=== PATIENT | male | born 1985 | race Caucasian/White ===

== ENCOUNTER 2021-06-29 08:30 | Emergency (ER) | payer OTHER, SELFPAY ==
[2021-06-29 08:32] VITALS: BP 119/97; PULSE 103; RESP 17; TEMP 36.1; O2SAT 100; BMI 27.0
[2021-06-29] MEDS: fentaNYL 100 MCG/2 ML Ampul IV ×2 (08:37→09:18)
--- NOTE | 2021-06-29 08:38 | ED.RN ---
PHYSICIAN AT BEDSIDE DOING A FAST EXAM OF ABD. PT MEDICATED FOR PAIN
--- NOTE | 2021-06-29 08:41 | RAD_ITS ---
STUDY: X-RAY - RIGHT TIBIA AND FIBULA REASON FOR EXAM: Male, 35 years old. TRAUMA TECHNIQUE: 1 view(s) of the tibia and fibula were obtained. COMPARISON: None. FINDINGS: Comminuted fracture through the midshaft of the tibia with extension to the distal tibia and the articular surface. Comminuted fracture through the distal shaft of the fibula. Soft tissue swelling. RAD/Tibia & Fibula 2 Views IMPRESSION: Comment a fracture through the midshaft of the tibia with extension of the distal tibia and the articular surface. Comminuted fracture through the distal shaft of the fibula. Electronically Signed: Sam Feldman MD at 9:28 EDT ,
--- NOTE | 2021-06-29 08:46 | ED.RN ---
WITH PT PERMISSION, THIS NURSE CONTACTED PT FATHER JUAN UPDATED ON STATUS AND CONDITION
--- NOTE | 2021-06-29 08:47 | RAD_ITS ---
STUDY: X-RAY CHEST REASON FOR EXAM: Male, 35 years old. Trauma TECHNIQUE: Single AP portable view of the chest. COMPARISON: None. FINDINGS: EKG electrodes are seen. Minimal linear atelectasis in the right upper lobe. There is no demonstrated pleural abnormality. Normal size heart. Normal mediastinum and tayla. Normal visualized pulmonary arteries. Normal visualized aortic arch and descending thoracic aorta. Normal visualized thoracic spine. Normal visualized ribs, clavicles, and shoulders. There is no demonstrated abnormality of the visualized soft tissue structures of the upper abdomen. RAD/Chest 1 View (Portable) IMPRESSION: Minimal linear atelectasis in the right upper lobe. Electronically Signed: Sam Feldman MD at 9:30 EDT ,
--- NOTE | 2021-06-29 08:47 | RAD_ITS ---
STUDY: X-RAY - PELVIS REASON FOR EXAM: Male, 35 years old. Trauma TECHNIQUE: One view of the pelvis was obtained. COMPARISON: None. FINDINGS: There is a non-specific bowel gas pattern. Normal visualized soft tissue structures. Normal bilateral iliac wings, sacroiliac joints and visualized sacrum. Normal visualized bilateral superior and inferior pubic rami. Normal pubic symphysis. Normal ischial tuberosities. Normal visualized right femoral head. Normal right acetabulum. Normal right hip joint. Normal visualized left femoral head. Normal left acetabulum. Normal left hip joint. RAD/Pelvis 1 or 2 Views IMPRESSION: Normal x-ray examination of the pelvis. Electronically Signed: Sam Feldman MD at 9:29 EDT ,
[2021-06-29] MEDS: 0.9% Normal Saline 1,000 ML 999 ML IV (08:48)
[2021-06-29] MEDS: Ondansetron 4 MG/2 ML Vial IV (08:49)
--- NOTE | 2021-06-29 08:49 | NURSING ---
[facility] NOT FLYING CALLED [facility], ETA IS 30 MIN WITH LIGHTS AND SIRENS
[2021-06-29] MEDS: Etomidate 20 MG/10 ML Vial 10 MG IV (08:50)
[2021-06-29 09:00] LABS: Absolute Lymphocyte Count 2.95 X10^3/uL (0.83-4.51); Absolute Neutrophil Count 13.5 X10^3/uL (2.0-7.7); Basophil# 0.09 X10^3/uL; Basophil% 0.5 % (0-1); Eosinophil# 0.26 X10^3/uL; Eosinophils% 1.4 % (0-5); Hematocrit 46.4 % (40-54); Hemoglobin 15.9 g/dL (13.0-16.5); Lymphocyte # 2.95 X10^3/ul (0.83-4.51); Lymphocyte % 16.2 % (19-41); Mean Corp Hgb Conc 34.3 g/dL (32-36); Mean Corpuscular Hgb 29.9 pg (27.0-32.0); Mean Corpuscular Volume 87.2 fL (80-94); Mean Platelet Vol. 10.2 fl (6.2-12.0); Monocyte# 1.38 X10^3/uL; Monocyte% 7.6 % (0-10); NRBC Flagged by Analyzer 0 % (0-5); Neutrophil # 13.47 X10^3/uL (2.7-7.7); Neutrophil % 73.9 % (47-70); Platelet Count 331 K/mm3 (150-450); RBC Distribution Width CV 14.1 % (11.6-14.6); RBC Distribution Width SD 44.9 fl (35.1-43.9); Red Blood Count 5.32 M/mm3 (4.6-6.2); White Blood Count 18.2 K/mm3 (4.4-11.0)
--- NOTE | 2021-06-29 09:02 | EDS_ITS ---
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 He sustained injury to both lower legs and his left flank. EMS splinted his right leg and gave him 100 mcg of fentanyl prior to arrival. Tetanus Immunization: Unknown PFS PFS Medical History no medical history no medical history Home Medications NK 06/29/21 [History Last Taken Unknown] Allergy/AdvReac Type Severity Reaction Status Date / Time amoxicillin [From Augmentin] Allergy PT UNSURE Verified 06/29/21 08:31 OF REACTION clavulanic acid Allergy PT UNSURE Verified 06/29/21 08:31 [From Augmentin] OF REACTION Social History (Updated 06/29/21 @ 09:[address] Kameron Holloway MD) Smoking Status: Current every day smoker ROS ROS ED Constitutional Constitutional ED: Denies chills or fever(s) Eyes Eyes: Denies change in vision or diplopia ENT ENT ED: Denies ear pain, epistaxis, facial pain or rhinorrhea Cardiovascular Cardiovascular: Denies chest pain or palpitations Respiratory/Chest Respiratory/Chest: Denies cough or dyspnea Gastrointestinal Gastrointestinal: Denies abdominal pain, diarrhea, melena, nausea or vomiting Genitourinary Genitourinary ED: Reports flank pain; Denies dysuria or hematuria Musculoskeletal Musculoskeletal: Reports extremity pain; Denies back pain or neck pain Integumentary Reports laceration; Denies abscess, Abrasions or rash Neurologic Neurologic: Denies confusion, headache(s), paresthesias or weakness EXAM Physical Exam Const Vital Signs: 06/29/21 08:32 06/29/21 08:43 Temperature 96.9 F L Temperature Source Temporal Pulse Rate 103 H Respiratory Rate 17 Respiratory Effort Normal Non-Labored Respiratory Depth Normal Respiratory Pattern Normal Blood Pressure 119/97 H Blood Pressure Mean 104 Pulse Ox 100 Oxygen Delivery Method Room Air Positive well nourished and well developed Constitutional Narrative: Acute painful distress General Appearance ED: well developed HEENT Reports TM's clear and nasal mucous membranes and turbinates normal atraumatic Face and Sinus: Negative for facial tenderness Tympanic Membrane ED: Yes TM's clear Eyes PERRL and EOMs intact bilaterally Visual Acuity: other Other Details: no entrapment or pain with extraocular movements Neck full ROM and supple General: Negative for tenderness Chest Wall inspection of chest normal and palpation of chest normal Chest: symmetrical chest wall rise; Negative for crepitus or tenderness Resp normal respiratory effort and clear to auscultation bilaterally Percussion: other equal BS bilat Cardio no murmurs Rate: regular rate Rhythm: regular rhythm GI normal to inspection, nondistended, normoactive bowel sounds, soft to palpation and non-tender Back/Spine Back/Spine Narrative: limited ROM due to RLE pain Cervical Spine: Negative for cervical spine tenderness Thoracic Spine / Upper Back: Negative for thoracic spinal tenderness Lumbar Spine / Lower Back: Negative for lumbar spinal tenderness Extremity Extremity Narrative: Open deformity right distal lower leg, about 6 cm above the ankle. Atraumatic above both knees with stable pelvis, with regards to the extremities. Upper extremities atraumatic. Difficult to palpate any of his pulses, he has brisk cap refill distally in all 4 extremities including the right foot. Full range of motion throughout the left lower extremity and both upper extremities. General Extremety ED: Yes tenderness Neuro oriented x3, CN's II-XII intact bilaterally, moves all extremities, no focal motor deficits and no sensory deficits noted Iesha Coma Scale: document GCS findings Spontaneous Obeys Commands Oriented 15 Sensorium / Orientation: awake and alert Psych mental status grossly normal and thought process normal Skin Skin Narrative: 6 cm full-thickness linear laceration into subcutaneous fat lateral left lower leg, bleeding controlled no bones or tendons visible. Abrasion/contusion left lateral flank. Lesions: no lesions Rashes: no rashes PROC Procedures Lower Extremity Splints Lower Extremity Splint: Orthoglass Splint Fabrication: Fabricated (Long leg posterior and sugar tong splint. Neurovascularly intact distally after placement which was done under procedural sedation. Tolerated well without complications. Pack of 4 x 4's placed on the open wound over the fracture distal right lower leg anteriorly.) Location: Right Other Procedures Procedure(s): Procedural sedation: Discussed risks and benefits since patient had a sandwich 2 or 3 hours ago, and patient is in agreement that the benefits of sedation for splinting his right lower extremity outweigh the risks. He was on the monitor, oxygen by facemask, IV fluids going, and 10 mg of etomidate was given after analgesia with fentanyl and Zofran 4 mg for prophylaxis. Time of p rocedural sedation was 11 minutes, there were no complications and he tolerated it well. MDM MDM MDM Narrative Medical decision making narrative: Patient was given IV fluid bolus. He was given Invanz 1 g for infection prophylaxis due to his obvious right open tib- fib. We held off on tetanus. He has an allergic reaction to penicillins, he has an anaphylactoid or anaphylactic reaction. He did fine with the Invanz. He was given multiple doses of fentanyl for pain control, his blood pressure remained stable. Labs were sent including CPK. Soon as I had x-rays of his right tib-fib, we sedated him with etomidate, see the procedure note, in order to splint him and remove his pants and shoes. I performed a FAST exam which was negative. He is hemodynamically and clinically stable, his extremities are neurovascularly intact. This patient needs to be sent to a trauma center for further evaluation and treatment. He prefers [facility]. I discussed with Dr. Kothari with trauma at [facility] who accepted the patient, also discussed with the ED attending where he will be a surgical team. I personally reviewed x-rays as follows: 1 view pelvis negative, 1 view chest negative, 1 view right tib-fib commune needed distal third tibia and fibula fractures. Lab Data Labs: Laboratory Results - last 24 hr 06/29/21 08:40 WBC 18.2 H RBC 5.32 Hgb 15.9 Hct 46.4 MCV 87.2 MCH 29.9 MCHC 34.3 RDW Std Deviation 44.9 H RDW Coeff of Magalie 14.1 Plt Count 331 MPV 10.2 Immature Gran % (Auto) 0.400 Neut % (Auto) 73.9 H Lymph % (Auto) 16.2 L Crosby % (Auto) 7.6 Eos % (Auto) 1.4 Baso % (Auto) 0.5 Absolute Neuts (auto) 13.5 H Absolute Lymphs (auto) 2.95 Nucleated RBC % 0 Critical Care Time Critical Care Time: Yes Critical care time (excluding procedures): 30-74 minutes (50 min), Including time spent:, Discussing w/Patient &/or Family/Wrapper Cashier, Discussing w/Consultants, Arranging Admission or Transfer and Performing Direct Patient Care at Bedside Discharge Plan Triage Chief Complaint: Trauma Other Complaint: Lower Extremity Injury ED Provider: Jewel,Kameron Dx/Rx/DC Orders Clinical Impression: Open fracture of right tibia and fibula, Laceration of left leg, Blunt abdominal trauma, Crush injury Prescriptions: No Action NK RF: 0 Primary Care Provider: Care Physician,No Primary Referrals: Care Physician,No Primary [Primary Care Provider] - Disposition Disposition: Acute Care Hospital Discharge Location: [facility]
--- NOTE | 2021-06-29 09:10 | NURSING ---
STELLA, SERA, COAGS AND CHEMISTRIES HEMOLIZED
--- NOTE | 2021-06-29 09:13 | ED.RN ---
PT JEANS AND SHIRT THROWN OUT PER PT REQUEST DUE TO CLOTHES BEING CUT OFF. PAIR OF BROWN WORK BOOTS, BLACK WALLET AND CELL PHONE PLACED IN BELONGINGS BAG
[2021-06-29 09:14] VITALS: BP 139/75; PULSE 87; RESP 26; O2SAT 100
[2021-06-29 09:21] VITALS: BP 128/92; PULSE 75; RESP 16; O2SAT 100
[2021-06-29 09:36] VITALS: PULSE 81; RESP 16; O2SAT 100
[2021-06-29 09:36] LABS: Partial Thromboplast Time 22.9 Seconds (24.1-36.2); Prothrombin Time (Protime)PT. 12.3 SECONDS (11.7-14.9)
[2021-06-29 09:47] LABS: ALB/GLOB Ratio 1.1 RATIO (0.9-2.4); AST(SGOT) 13 U/L (15-37); Alanine Aminotransfer ALT/SGPT 30 U/L (16-61); Albumin, Serum 3.5 g/dL (3.2-5.0); Alkaline Phosphatase 69 U/L (45-117); Anion Gap 6 (5-15); BUN 18 mg/dL (7-18); BUN/Creat Ratio 16.4 RATIO (10-20); CPK Total, Creatine Kinase 171 U/L (39-308); Calcium,Total 8.9 mg/dL (8.5-10.1); Chloride 111 mmol/L (98-107); EST Glomerular Filtration Rate 80 mL/min (>60); Est Glom Filt Rate - Afr Amer 97 mL/min (>60); Estimated Creatinine Clearance 103.91 ml/min; Globulin 3.2 g/dL (2.2-4.2); Glucose 93 mg/dL (74-106); Potassium 3.5 mmol/L (3.5-5.1); Protein, Total 6.7 g/dL (6.4-8.2); Sodium Level 141 mmol/L (136-145)
--- NOTE | 2021-06-30 01:31 | ED.RN ---
GOT INTO PATIENTS CHART TO LOOK AT THE FRO[facility] FOR WORKERS COMP
== END 2021-06-29 09:42 | disposition short-term general hospital (02) ==
PROVIDERS: Emergency Provider Emergency Medicine; Visit Provider Emergency Medicine
DX: S82.201B Unspecified fracture of shaft of right tibia, initial encounter for open fracture type I or II (principal); S87.81XA Crushing injury of right lower leg, initial encounter; S39.81XA Other specified injuries of abdomen, initial encounter; W31.89XA Contact with other specified machinery, initial encounter; Y93.9 Activity, unspecified; Y92.9 Unspecified place or not applicable; F17.200 Nicotine dependence, unspecified, uncomplicated
CPT/HCPCS: 29505; 71045; 72170; 73590; 80053; 82550; 85025; 85610; 85730; 96365; 96375; 96376; 99285; J7030; A4216; J2405

== ENCOUNTER 2021-07-06 16:55 | Inpatient (IN) | payer OTHER, SELFPAY ==
[2021-07-06 17:08] VITALS: BP 128/81; PULSE 82; RESP 16; TEMP 36.7; O2SAT 95
[2021-07-06 17:47] VITALS: BMI 26.4
[2021-07-06] MEDS: oxyCODONE 5 MG Tablet PO (18:38)
[2021-07-06 20:46] VITALS: BP 114/82; PULSE 95; RESP 18; TEMP 36.7; O2SAT 95
[2021-07-06] MEDS: Acetaminophen 500 MG Tablet 1000 MG PO (20:47)
[2021-07-06] MEDS: Docusate Sodium 100 MG Capsule PO (21:26)
[2021-07-06] MEDS: Polyethylene Glycol 3350 17 GM PACKET PO (21:26)
[2021-07-06] MEDS: Gabapentin 300 MG Capsule PO (21:27)
[2021-07-06] MEDS: Methocarbamol 500 MG Tablet 1000 MG PO (21:27)
[2021-07-06] MEDS: APIXABAN 2.5 MG TABLET PO (21:27)
[2021-07-06] MEDS: Bacitracin 500 UNITS/GM PACKET TOPICAL (21:43)
[2021-07-07] MEDS: oxyCODONE 5 MG Tablet PO ×2 (02:23→08:23)
[2021-07-07 05:40] VITALS: O2SAT 98
[2021-07-07] MEDS: Methocarbamol 500 MG Tablet 1000 MG PO ×3 (05:53→21:26)
[2021-07-07] MEDS: Gabapentin 300 MG Capsule PO ×3 (05:53→21:26)
[2021-07-07 07:47] VITALS: BP 107/71; PULSE 83; RESP 16; TEMP 36.6; O2SAT 96
[2021-07-07] MEDS: Acetaminophen 500 MG Tablet 1000 MG PO ×3 (08:00→19:25)
[2021-07-07] MEDS: Docusate Sodium 100 MG Capsule PO (08:01)
[2021-07-07] MEDS: Polyethylene Glycol 3350 17 GM PACKET PO (08:01)
[2021-07-07] MEDS: APIXABAN 2.5 MG TABLET PO ×2 (08:02→21:26)
[2021-07-07] MEDS: Senna Tablet 2 TABLET PO (08:02)
--- NOTE | 2021-07-07 10:53 | HP.PCM_ITS ---
HPI - General General Date of Admission: 07/06/21 HPI Narrative JUAN MENA, is a 35 YO M with a PMH of tobacco dependence, who presented to the ED at [facility] on 06/29/[address] of work. A 1,000 lb piece of machinery fell of and elevated surface on the patient's legs. Coworkers were able to release him in less than 5 minutes and he was brought to the ED. He had injuries to both legs and the left flank. EMS had splinted his right leg and he had been given fentanyl for pain control. On physical examination there was an open deformity of the right distal lower leg. There was a 6 cm full-thickness linear laceration into the subcutaneous fat of the lateral left lower leg and abrasion/contusion to the left lateral flank. He had a fracture of the R tib/fib. He was transferred to the trauma service at [facility] where he had an I&D of the open wound and IM tomasz fixation of the mid-distal tibial fracture. Post operatively he was seen by PT and acute inpt rehab was recommended. He was transferred to the acute inpt rehab unit at [facility] on 07/06/21 for 3 hours of therapy daily to restore function/independence at or near his level prior to the accident. He had some mildly elevated BS's while at [facility]. The sutures are to be removed on 07/12/21 from the Left leg. He will follow up with the surgeon, Dr. Esposito, post discharge from rehab. He is [facility] on the [facility] Medical History (Updated 07/07/21 @ 14:[address] Bronwyn Chakraborty, ) Tobacco dependence Medical History no medical history Home Medications acetaminophen 1,000 mg PO Q8H PRN 07/06/21 [History Last Taken Unknown] apixaban [Eliquis] 2.5 mg PO BID 07/06/21 [History Last Taken Unknown] bacitracin 1 applic TOPICAL BID 07/06/21 [History Last Taken Unknown] docusate sodium 100 mg PO BID 07/06/21 [History Last Taken Unknown] gabapentin 300 mg PO TID 07/06/21 [History Last Taken Unknown] methocarbamol 1,000 mg PO TID 07/06/21 [History Last Taken Unknown] nicotine 1 patch TRANSDERMAL Q24H 07/06/21 [History Last Taken Unknown] ondansetron HCl [Zofran] 4 mg PO Q8H PRN 07/06/21 [History Last Taken Unknown] oxycodone 5 - 10 mg PO Q6H PRN 07/06/21 [History Last Taken Unknown] polyethylene glycol 3350 [Miralax] 17 g PO BID 07/06/21 [History Last Taken Unknown] sennosides [senna] 2 mg PO BID 07/06/21 [History Last Taken Unknown] Allergy/AdvReac Type Severity Reaction Status Date / Time amoxicillin [From Augmentin] Allergy PT UNSURE Verified 06/29/21 08:31 OF REACTION clavulanic acid Allergy PT UNSURE Verified 06/29/21 08:31 [From Augmentin] OF REACTION Family History (Updated 07/07/21 @ 14:[address] Bronwyn Chakraborty DO) Aunt Breast cancer Grandfather CAD (coronary artery disease) CVA (cerebral vascular accident) Mother , at 52 YOA - vaginal CA per [facility] Other Diabetes Family History no significant family his Surgical History (Updated 07/07/21 @ 14:[address] Bronwyn Chakraborty DO) S/P ORIF (open reduction internal fixation) fracture Social History (Updated 07/07/21 @ 14:[address] Bronwyn Chakraborty DO) adopted: No household members: none housing: house current occupational status: employed current occupation: employed at [employer] Smoking Status: Current every day smoker tobacco type: cigarettes quit status: considering quitting counseling given: counseling >3 minutes alcohol intake: current details: rare alcohol substance use type: marijuana and other details: occasional marijuana ROS Constitutional Constitutional: Reports weakness; Denies anorexia, change in weight, chills, fatigue, fever(s) or night sweats Eyes Eyes: Denies blurry vision, change in vision, eye pain or loss of vision ENT HEENT: Denies abnormal hearing, dysphagia, headache(s), hearing loss, nasal congestion or sore throat Cardiovascular Cardiovascular: Denies chest pain, dyspnea on exertion, edema, lightheadedness, orthopnea, palpitations, paroxysmal nocturnal dyspnea or syncope Respiratory/Chest Respiratory/Chest: Reports other Details: tells me that his breathing is better now that he is not smoking ; Denies cough, dyspnea, shortness of breath at rest, shortness of breath with exertion or wheezing Gastrointestinal Gastrointestinal: Denies abdominal pain, constipation, diarrhea, dyspepsia, hematemesis, hematochezia, nausea or vomiting Genitourinary Genitourinary: Denies dysuria, hematuria, nocturia, urinary frequency, urinary hesitancy, urinary incontinence or urinary urgency Musculoskeletal Musculoskeletal: Reports difficulty walking, extremity pain, muscle weakness and other Details: weakness and pain in the R LE due to recent open fracture of the tib/fib and crush injury ; Denies back pain, joint pain, joint swelling or neck pain Integumentary Integumentary: Reports rash and other Details: rash started last week at the previous hospital and may be due to one of the antibiotics he received because the fracture was an open one......he had Invanz in the ED at [facility] and he lists PCN as an allergy ; Denies alopecia, change in hair, jaundice or unusual bruising Neurologic Neurologic: Denies confusion, disequilibrium, dizziness, headache(s), paresthesias, seizures or tremor(s) Psychiatric Psychiatric: Denies anxiety, depression, homicidal ideation or suicidal ideation Endocrine Endocrinology: Denies change in body appearance, polydipsia or polyuria Hematologic/Lymphatic Hematologic/Lymphatic: Denies easy bleeding, easy bruising or lymphadenopathy Allergic/Immunologic Allergic/Immunologic: Denies rhinitis, eczemia or asthma Vital Signs Vital Signs Vital Signs: 07/06/21 17:08 07/06/21 20:46 07/06/21 21:00 Temperature 98.1 F 98.1 F Temperature Source Oral Temporal Pulse Rate 82 95 Pulse Strength Respiratory Rate 16 18 Respiratory Effort Normal Non-Labored Blood Pressure 128/81 H 114/82 H Blood Pressure Mean 96 92 Blood Pressure Source Monitor Monitor Blood Pressure Position Semi-Fowlers Semi-Fowlers Blood Pressure Location Right Arm Right Arm Pulse Ox 95 95 Oxygen Delivery Method Room Air Room Air Room Air 07/06/21 22:00 07/07/21 05:40 07/07/21 07:47 Temperature 97.8 F Temperature Source Oral Pulse Rate 83 Pulse Strength Normal (2+) Respiratory Rate 16 Respiratory Effort Blood Pressure 107/71 Blood Pressure Mean 83 Blood Pressure Source Monitor Blood Pressure Position Semi-Fowlers Blood Pressure Location Right Arm Pulse Ox 98 96 Oxygen Delivery Method Room Air Room Air Weight Weight: 200 lb 13.458 oz Body Mass Index (BMI) 26.4 Physical Exam Const alert, oriented x3 and no apparent distress Constitutional Narrative: Making good eye contact, appropriate, sitting in the recliner at the bedside with the RLE elevated General Appearance: cooperative, comfortable, well kempt and well developed HEENT moist oral mucous membranes Eyes PERRL, EOMs intact bilaterally, conjunctivae normal and no scleral icterus General Eye: normal appearance of both eyes Neck No nuchal rigidity, no lymphadenopathy, supple, no JVD and no carotid bruits Chest Chest: symmetrical chest wall rise Resp normal respiratory effort, normal air movement, no use of accessory muscles and clear to auscultation bilaterally Resp Narrative: Not tachypneic and no conversational dyspnea. Cardio regular rate, regular rhythm, S1 normal heart sound, S2 normal heart sound, no murmurs, no rub and no gallops GI normal to inspection, nondistended, normoactive bowel sounds, soft to palpation and non-tender GI Narrative: No guarding with palpation. Extremity no clubbing, cyanosis or edema and no calf tenderness Extremity Narrative: He has intact sensation of the R toes and they are warm with good capillary refill. There is a laceration on the L lateral calf that is sutured and the incision is intact with no erythema and no DC. There is no swelling. the RLE is in a boot and it can be removed if he is sitting in a chair or he is in bed. Under the boot the leg from the toes to the knees is wrapped in cast padding and then wrapped with an CHANTELLE wrap. I did not examine today but, will examine tomorrow or Friday. There are no dressing orders for the RLE. We are to remove the sutures from the left leg on the . Radial pulses are 3+ BL and the DP pulses are 3+ BL. Good cap refill. Skin Skin Narrative: No rashes, no skin breakdown. he has a red macular papular rash in both antecubital fossas and it is mildly pruritic General Skin Exam: no breakdown Wound Narrative: See extremity exam Neuro oriented x3, CN's II-XII intact bilaterally, no focal motor deficits and no sensory deficits noted Psych affect normal, denies homicidal ideation and denies suicidal ideation Psych Narrative: Appropriate, making good eye contact. Able to stay on topic and focus. No flight of ideas. Does not appear anxious or depressed. Conve rsant and relating well to staff. Assessment & Plan Assessment/Plan (1) Traumatic injury of right lower extremity: (2) Open fracture of right tibia and fibula: (3) S/P ORIF (open reduction internal fixation) fracture: (4) Crushing injury of right lower leg: (5) Laceration of left leg: (6) Tobacco dependence: PLAN: PLAN PT for gait stability OT for ADL's Analgesics as needed -the oxycodone does not last quite 6 hours and will change to every 4 hours as needed for the next few days. Bowel protocol Fall precautions Assess for Anxiety/Depression GI prophylaxis not necessary-he denies epigastric pain, nausea, abdominal pain, vomiting and he also denies history of GERD or peptic ulcer disease. DVT prophylaxis with apixaban 2.5 mg twice daily Follow up with Dr. Esposito following DC from Rehab. He will need a PCP to follow with also. AM lab including CMP, CBC, Mag and Phos Unit Exclusion This patient is an acute care inpatient being housed in the excluded unit because of capacity issues related to the disaster or emergency.: Yes Charges/Coding Visit Charges Inpatient E&M: 05909 Init Hosp L2
--- NOTE | 2021-07-07 11:24 | REHABEVAL_ITS ---
Admission Information Primary Diagnosis:: Physical debility secondary to traumatic open fracture of the right tib/fib. Status Changes from Prescreening?: No changes Identified Actual Problem List:: Skin Intergrity, Pain, ALteration in Cmfrt, Bowel, Constipation, Alteration in Sleep, Mobility Impaired, Self Care Deficit and Alteration-Leisure Activ. Potential Problem List:: DVT, Bleeding, Infection, UTI, Falls, Skin Integrity and Depression Risk of Complications DVT: CLEM Hose and - (Eliquis 2.5 mg BID) Bleeding: Monitor Lab Values, Nursing to Teach Precautions for anti-coagulation therapy. and Wound, if applicable, to be assessed every shift. Infection: Clinical Staff to Monitor for S/S of infection: and S/S of infection include fever, redness, warmth, etc. Urinary Tract Infection: Monitor for frequency, burning, discomfort, or incontinence. and Nursing will obtain urine sample for urinalysis and C&S when ordered. Falls: Patient will be evaluated for Fall Precautions and Patient will be placed on Fall Precautions as indicated per protocol. Skin Breakdown: Nursing will assess skin daily using assessment tool. and Nursing will place on Skin Breakdown Precautions as indicated. Pain: Clinical staff will assess patient's pain level per protocol., Medications will be given, if needed, and the pain level reassessed. and Other methods: Massage, distraction, decrease stimulus, etc. used PRN. Plan of Care Patient requires physician specializing in physical medicine and rehab oversight to provide close medical supervision of rehab issues including: Pain Management, Sleep Problems, Bowel and Bladder, Medical and co-morbidity Management, DVT prophylaxis, Rehabilitation Leadership and Coordination of treatment team Patient needs Physical Therapy: For a minimum of 1 hour and At least 5 out of 7 days Patient needs Physical Therapy to improve:: Mobility, Strengthening, Transfers, Stretching, ROM, Endurance, Stairs, Gait and Balance Patient needs Occupational Therapy: For a minimum of 1 hour and At least 5 out of 7 days Patient needs Occupational Therapy to improve ADL's incl.: Eating, Grooming, Bathing, Dressing, Toileting, Toilet transfers, Community Reintegration, Higher functioning activities, Household tasks, Adaptive Equipment, Splinting and Other activities as determined Patient requires 24/7 Rehabilitation Nursing for: Pain Issues, Identifying and preventing risk factors, Monitoring and reporting current medical conditions, Assisting with ambulation, transfer, and all ADL's, Teaching patients about disease process and medications, Family teaching, Providing safe environment, Bowel and Bladder Issues, Skin integrity and Medication Management Patient needs Case Loader Operator/ Case Management for: Discharge Planning, Arranging Home Equipment or Services and Family Interventions Patient needs Dietary and Nutrition Services for: Adequate Nutrition, Nutritional Supplements and Nutritional Education Goals Patient will remain: free from falls Patient will perform bed mobility at: MOD I level of assist. Patient will complete transfers from bed to chair at: MOD I level of assist. Patient will ambulate: - (150 feet with least restrictive assistive device at mod I while maintaining right lower extremity weightbearing restrictions.) Patient will complete upper body dressing at: MOD I level of assist. Patient will complete lower body dressing at: MOD I level of assist. Patient will complete toileting at: MOD I level of assist. Patient will perform bathing at: - (TBD) Patient will complete grooming at: MOD I level of assist. Patient will complete home management skills at: MOD I level of assist. Patient will achieve: - (Ascend/descend 3 steps to enter/exit his home and 1 curb step with ) Patient will have pain level of: of 3 or less Patient's skin will: remain intact Patient will receive: adequate nutrition. Discharge Planning Estimated Length of stay (days): 21 Anticipated D/C Destination: Home with Home Health Was Preadmission Assessment Accurate?: Yes
[2021-07-07 12:15] VITALS: O2SAT 96
[2021-07-07] MEDS: Bacitracin 500 UNITS/GM PACKET TOPICAL ×2 (13:18→20:27)
[2021-07-07] MEDS: oxyCODONE 5 MG Tablet 10 MG PO (17:49)
[2021-07-07 19:29] VITALS: BP 113/70; PULSE 101; RESP 20; TEMP 36.6; O2SAT 97
--- NOTE | 2021-07-07 19:44 | NURSING ---
DR FIGUEROA NOTIFIED THAT PT HAS CHEST PAIN RATED #8 WITH INSPIRATION AND THAT CHEST PAIN IS WORSE WITH PALPATION. INFORMED OF CURRENT LUNG SOUNDS AND PULSE RATE. ORDERS TO BE WRITTEN BY DR FIGUEROA.
[2021-07-07] MEDS: Morphine 2 MG/ML Syringe IV (20:09)
[2021-07-07 20:23] VITALS: BP 118/71; PULSE 105; RESP 20; O2SAT 96
--- NOTE | 2021-07-07 20:30 | NURSING ---
PT FEELING MORE RELAXED AND PAIN HAS DECREASED TO A #2 AFTER RECEIVING MORPHINE IV.
--- NOTE | 2021-07-07 21:28 | NURSING ---
PT HAS JUST WOKEN UP AFTER SLEEPING FOR AWHILE AND SAYS PAIN IS NOW A #5 IN CHEST. K PAD APPLIED AND HS MEDS GIVEN. PT RETURNS TO RESTING WITH EYES CLOSED. RESP ARE EVEN AND EASY.
[2021-07-08] MEDS: Acetaminophen 500 MG Tablet 1000 MG PO ×3 (05:21→22:33)
[2021-07-08] MEDS: Gabapentin 300 MG Capsule PO ×3 (05:22→22:34)
[2021-07-08] MEDS: Methocarbamol 500 MG Tablet 1000 MG PO ×3 (05:22→22:34)
[2021-07-08 06:04] LABS: Absolute Lymphocyte Count 1.96 X10^3/uL (0.83-4.51); Absolute Neutrophil Count 12.1 X10^3/uL (2.0-7.7); Basophil# 0.09 X10^3/uL; Basophil% 0.5 % (0-1); Eosinophil# 0.24 X10^3/uL; Eosinophils% 1.5 % (0-5); Hematocrit 41.2 % (40-54); Hemoglobin 13.9 g/dL (13.0-16.5); Lymphocyte # 1.96 X10^3/ul (0.83-4.51); Lymphocyte % 11.9 % (19-41); Mean Corp Hgb Conc 33.7 g/dL (32-36); Mean Corpuscular Hgb 30.1 pg (27.0-32.0); Mean Corpuscular Volume 89.2 fL (80-94); Mean Platelet Vol. 8.9 fl (6.2-12.0); Monocyte% 12.1 % (0-10); NRBC Flagged by Analyzer 0 % (0-5); Neutrophil # 12.13 X10^3/uL (2.7-7.7); Neutrophil % 73.5 % (47-70); POSITIVE DIFFERENTIAL YES; Platelet Count 519 K/mm3 (150-450); RBC Distribution Width CV 14.1 % (11.6-14.6); RBC Distribution Width SD 45.3 fl (35.1-43.9); Red Blood Count 4.62 M/mm3 (4.6-6.2); White Blood Count 16.5 K/mm3 (4.4-11.0)
[2021-07-08 06:11] LABS: Differential Indicated SCAN CRITERIA MET
[2021-07-08 06:35] VITALS: O2SAT 96
[2021-07-08 06:35] LABS: ALB/GLOB Ratio 0.7 RATIO (0.9-2.4); AST(SGOT) 49 U/L (15-37); Alanine Aminotransfer ALT/SGPT 208 U/L (16-61); Alkaline Phosphatase 100 U/L (45-117); Anion Gap 8 (5-15); BUN 16 mg/dL (7-18); BUN/Creat Ratio 21.1 RATIO (10-20); Calcium,Total 8.7 mg/dL (8.5-10.1); Chloride 105 mmol/L (98-107); Creatinine, Serum 0.76 mg/dL (0.70-1.30); EST Glomerular Filtration Rate 122 mL/min (>60); Est Glom Filt Rate - Afr Amer 148 mL/min (>60); Globulin 4.5 g/dL (2.2-4.2); Glucose 115 mg/dL (74-106); Magnesium 2.7 mg/dL (1.6-2.6); Phosphorus 3.6 mg/dL (2.5-4.9); Potassium 4.1 mmol/L (3.5-5.1); Protein, Total 7.5 g/dL (6.4-8.2); Sodium Level 133 mmol/L (136-145)
[2021-07-08 06:39] LABS: Differential Comment SCANNED
[2021-07-08] MEDS: APIXABAN 2.5 MG TABLET PO ×2 (08:02→22:34)
[2021-07-08] MEDS: oxyCODONE 5 MG Tablet 10 MG PO ×3 (08:02→20:41)
[2021-07-08] MEDS: Bacitracin 500 UNITS/GM PACKET TOPICAL ×2 (08:03→20:52)
[2021-07-08 08:18] VITALS: BP 123/75; PULSE 96; RESP 18; TEMP 37; O2SAT 93
[2021-07-08 19:31] VITALS: BP 159/74; PULSE 101; RESP 15; TEMP 36.2; O2SAT 95
[2021-07-08] MEDS: Polyethylene Glycol 3350 17 GM PACKET PO (22:34)
[2021-07-08] MEDS: 0.9% Saline Lock 10 ML Syringe IV (22:35)
[2021-07-08] MEDS: Senna/Docusate Sodium 1 Tablet 2 TABLET PO (22:37)
[2021-07-09] MEDS: Methocarbamol 500 MG Tablet 1000 MG PO ×3 (06:38→21:38)
[2021-07-09] MEDS: Acetaminophen 500 MG Tablet 1000 MG PO ×3 (06:38→21:38)
[2021-07-09] MEDS: Gabapentin 300 MG Capsule PO ×3 (06:38→21:38)
[2021-07-09 07:34] VITALS: BP 113/72; PULSE 76; RESP 12; TEMP 36.6; O2SAT 97
[2021-07-09] MEDS: Polyethylene Glycol 3350 17 GM PACKET PO ×2 (08:55→21:38)
[2021-07-09] MEDS: Bacitracin 500 UNITS/GM PACKET TOPICAL ×2 (08:56→22:11)
[2021-07-09] MEDS: Senna/Docusate Sodium 1 Tablet 2 TABLET PO ×2 (08:58→21:38)
[2021-07-09] MEDS: APIXABAN 2.5 MG TABLET PO ×2 (09:00→21:38)
[2021-07-09] MEDS: oxyCODONE 5 MG Tablet 10 MG PO ×3 (09:02→19:44)
--- NOTE | 2021-07-09 10:18 | PCM.PROGNOTE ---
Subjective Subjective Afebrile VSS Maintaining appropriate oxygen saturation on RA Oral intake is adequate Discussed with nursing - no problems that need addressed Reviewed the PT/OT/ST notes Medication list reviewed. He has been refusing the nicotine patch so will discontinue. He had 3 doses of oxycodone 10 mg yesterday. All labs from 07/08/2021 was personally reviewed. Platelet count is mildly increased at 519. Hemoglobin is within normal limits. White blood cell count is 16.5 but he is afebrile and the differential is unremarkable. Sodium was low at 133 and the serum bicarb was low at 20. BUN is 16 and the creatinine is 0.76. AST and ALT are mildly elevated however I believe this is likely secondary to muscle trauma from the crush injury. He complained of some chest pain Friday evening and was evaluated by the hospitalist who felt it was musculoskeletal and he had 1 dose of morphine sulfate. He has had no further CP since then. Tells me that his pain is adequately controlled. He denies shortness of breath, lightheadedness, cough, sore throat, nausea/vomiting, dysuria. Doing well with therapy. Has not attempted steps yet and he has steps to get in his trailer. Must be able to do steps to get home or get a ramp prior to DC. May be able to rent a ramp.....SW is working with him. Objective Data Objective Data Vital Signs: Vital Signs Temp Pulse Resp BP Pulse Ox 97.8 F 76 12 113/72 97 07/09/21 07:34 07/09/21 07:34 07/09/21 07:34 07/09/21 07:34 07/09/21 07:34 Oxygen Delivery Method Room Air Weight: 200 lb 13.458 oz Body Mass Index (BMI) 26.4 Intake & Output: Intake and Output for Last 24 Hours 07/07/21 07/08/21 07/09/21 23:59 23:59 23:59 Intake Total 480 / 480 1080 / 1080 360 / 360 Output Total 600 / 600 600 / 600 Balance -120 / -120 480 / 480 360 / 360 Lab / Micro Data Result Diagrams: 07/08/21 05:58 07/08/21 05:58 Physical Exam Const alert, oriented x3 and no apparent distress General Appearance: cooperative Resp clear to auscultation bilaterally Cardio regular rate, regular rhythm, no murmurs, no rub and no gallops GI normal to inspection, nondistended, normoactive bowel sounds, soft to palpation and non-tender Extremity Extremity Narrative: The swelling in the RLE is less today. He has a strong DP pulse and sensation is intact. Skin General Skin Exam: no breakdown Rashes: no rashes Psych affect normal Assessment & Plan Assessment/Plan (1) S/P ORIF (open reduction internal fixation) fracture: (2) Traumatic injury of right lower extremity: (3) Crushing injury of right lower leg: (4) Laceration of left leg: (5) Open fracture of right tibia and fibula: PLAN: 1. Continue therapy with TTWB on the RLE 2. DC the Nicotine patch since he has been refusing 3. Sutures/randall can be removed on . 4. Needs to be able to get up the steps at his trailer or to have a ramp prior to DC. He has 1 HR and tells me that his dad and brother can put a second HR up .....he is too fearful now to try the steps and hopping. Charges/Coding Visit Charges Inpatient E&M: 45450 Subs Hosp L2
[2021-07-09 13:01] LABS: Pathologist Review Reviewed
--- NOTE | 2021-07-09 14:53 | CASEMGMT ---
Social Work Met with patient to complete initial assessment. Introduced self and role. Pt wishes to have primary contact as father and add sister. Facesheet updated. Explained M[employer] insurance, under worker's comp claim. Explained insurance approved through 07/19, but if unable to DC, NRD 07/16. Pt lives at home alone, 4 steps to enter. 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 Pt is currently WBAT LLE, TTWB RLE and wearing a boot while self-propelling in w/c. Pt requested assistance with worker's comp paperwork. Assisted in completing with pt and provided the paperwork to physician to complete her part. Encouraged pt to advocate for self through HR department and get all statements made in writing, i.e. has a job to return to, not having to use sick/PTO time, etc. Pt expressed understanding and appreciative for assistance. SW to continue to follow. Meryl Bonilla, IT CONSULTING DIRECTOR SAFETY GLASS INSTALLER
[2021-07-09 19:40] VITALS: BP 120/86; PULSE 87; RESP 15; TEMP 37.1; O2SAT 96
[2021-07-09 22:00] VITALS: RESP 16
[2021-07-10] MEDS: Gabapentin 300 MG Capsule PO ×3 (06:26→21:43)
[2021-07-10] MEDS: Acetaminophen 500 MG Tablet 1000 MG PO ×3 (06:26→21:44)
[2021-07-10] MEDS: Methocarbamol 500 MG Tablet 1000 MG PO ×3 (06:26→21:43)
--- NOTE | 2021-07-10 07:17 | NURSING ---
Urine hejd6oz of 300mL in urinal and bladder scanned for 97mL.
[2021-07-10 07:43] VITALS: BP 124/79; PULSE 87; RESP 16; TEMP 37.1; O2SAT 96
[2021-07-10] MEDS: oxyCODONE 5 MG Tablet 10 MG PO ×4 (08:05→23:30)
[2021-07-10] MEDS: APIXABAN 2.5 MG TABLET PO ×2 (08:05→21:42)
[2021-07-10] MEDS: Bacitracin 500 UNITS/GM PACKET TOPICAL ×2 (08:08→21:42)
[2021-07-10 19:36] VITALS: BP 104/76; PULSE 88; RESP 16; TEMP 36.7; O2SAT 97
--- NOTE | 2021-07-10 21:56 | NURSING ---
Pt refused stool softener and Miralax this hs stating he is not having any issue with BMs now.
[2021-07-10 22:00] VITALS: PULSE 83; RESP 16
[2021-07-11] MEDS: Methocarbamol 500 MG Tablet 1000 MG PO ×3 (05:56→19:44)
[2021-07-11] MEDS: Gabapentin 300 MG Capsule PO ×3 (05:57→21:56)
[2021-07-11] MEDS: oxyCODONE 5 MG Tablet 10 MG PO ×5 (06:00→23:13)
[2021-07-11] MEDS: Acetaminophen 500 MG Tablet 1000 MG PO ×3 (06:00→21:55)
[2021-07-11] MEDS: Bacitracin 500 UNITS/GM PACKET TOPICAL ×2 (07:54→19:39)
[2021-07-11 07:55] VITALS: BP 116/73; PULSE 76; RESP 16; TEMP 35.9; O2SAT 96
[2021-07-11] MEDS: APIXABAN 2.5 MG TABLET PO ×2 (07:55→21:56)
[2021-07-11 19:25] VITALS: BP 124/80; PULSE 75; RESP 14; TEMP 36.4; O2SAT 94
[2021-07-12] MEDS: oxyCODONE 5 MG Tablet 10 MG PO ×3 (04:10→13:07)
[2021-07-12] MEDS: Gabapentin 300 MG Capsule PO ×2 (06:05→14:17)
[2021-07-12] MEDS: Acetaminophen 500 MG Tablet 1000 MG PO ×2 (06:05→14:21)
[2021-07-12] MEDS: Methocarbamol 500 MG Tablet 1000 MG PO ×3 (06:05→21:10)
[2021-07-12 08:58] VITALS: BP 113/69; PULSE 87; RESP 20; TEMP 36.8; O2SAT 93
[2021-07-12] MEDS: Bacitracin 500 UNITS/GM PACKET TOPICAL ×2 (09:01→21:03)
[2021-07-12] MEDS: APIXABAN 2.5 MG TABLET PO ×2 (09:01→21:04)
--- NOTE | 2021-07-12 11:19 | PN_ITS ---
Subjective Subjective Chavez was seen on TEAM rounds today. His father, Chavez, was present in the room. Afebrile VSS Maintaining appropriate oxygen saturation on RA Oral intake is good Last bowel movement was 07/10/2021. Discussed with nursing - He was moaning and groaning to nurses last night about Left shoulder pain and said he thought he overdid it in therapy yesterday He said the same thing a few days ago about chest pain and the night hospitalist ordered a dose of MS. He told the PT he did not sleep well due to the left shou lder pain but, nursing documented that he slept well? I reviewed the OAR[facility] and he was not getting RX's for narcotics prior to the accident. Reviewed the PT/OT/ST notes Medication list reviewed. He is taking the Oxycodone every 4 hours in addition to Baclofen, Scheduled Acetaminophen and Gabapentin. Will have a discussion with him today about starting to taper pain relievers. He c/o feeling tired yesterday and today and he told the PT he felt as though he was going to faint yesterday more than once after pain medication. Has been refusing stool softeners for the past few days. Objective Data Objective Data Vital Signs: Vital Signs Temp Pulse Resp BP Pulse Ox 98.2 F 87 20 H 113/69 93 07/12/21 08:58 07/12/21 08:58 07/12/21 08:58 07/12/21 08:58 07/12/21 08:58 Oxygen Delivery Method Room Air Weight: 200 lb 9.93 oz Body Mass Index (BMI) 26.4 Intake & Output: Intake and Output for Last 24 Hours 07/10/21 07/11/21 07/12/21 23:59 23:59 23:59 Intake Total 400 / 400 360 / 360 300 / 300 Output Total 650 / 650 300 / 300 Balance -250 / -250 60 / 60 300 / 300 Lab / Micro Data Result Diagrams: 07/08/21 05:58 07/08/21 05:58 Physical Exam Const Constitutional Narrative: He appears a little groggy and told me he feels that way also. Denies lightheadedness lying down. Eyes conjunctivae normal and no scleral icterus Resp clear to auscultation bilaterally Resp Narrative: no cough Effort and Inspection: able to speak in complete sentences Cardio regular rate, regular rhythm and no gallops GI normal to inspection, nondistended, normoactive bowel sounds, soft to palpation and non-tender Extremity Extremity Narrative: The R calf is tender but, there is still swelling and a lot of ecchymosis. The randall were removed from the Left lateral calf and the incision is intact with no dehiscence and there is no erythema and no purulent DC or swelling. the incisions on the RLE are also intact with no dehiscence. Randall are in place yet. There is no bijal-wound erythema and no purulent DC from the incision. the R foot is warm and he has intact sensation. The R DP in 3/3 and the PT pulse is difficult to palpate due to ankle swelling but I can feel a pulse, weak. The swelling is gradually going down. Psych affect normal Assessment & Plan Assessment/Plan (1) S/P ORIF (open reduction internal fixation) fracture: (2) Crushing injury of right lower leg: (3) Open fracture of right tibia and fibula: (4) Traumatic injury of right lower extremity: PLAN: 1. Recheck the BMP in the AM 2. We had a discussion with Chavez about how the different medications work and that the Baclofen, Oxycodone and Gabapentin all can make you tired and lightheaded and disconnected. The pain in the RLE is not burning or shock like and shooting. It does not sound radicular. He thinks that the muscle relaxer helps as he occasionally has spasms in the calf. We agreed on starting a NSAID for pain and inflammation (denies epigastric pain, nausea and hx of PUD) and tapering the Gabapentin. He is aware that narcotics are addictive. Gabapentin was changed to 100 mg TID with the intention of getting him off this medication which I suspect was added to potentiate the effect of the narcotic and not for nerve pain. Add Trazodone at HS for sleep. 3. Change the Robaxin to PRN. 4. Continue therapy Charges/Coding Visit Charges Inpatient E&M: 47870 Subs Hosp L2
--- NOTE | 2021-07-12 14:42 | CASEMGMT ---
Social Work IDT met with patient and father for Team meeting. Discussed patient's progress in PT/OT and nursing. Pt progressing well. Explained MMO insurance approved with NRD 07/16 with goal DC 07/19. Pt and IDT agreeable to DC 07/19 home alone. Recommending ramp and/or handrails to entry way steps, plus grab bars in the bathroom. Faxed C9 form to [employer] requesting w/c w/elevating leg rests, FWW, tall crutches, 3-in-1 commode, tub transfer bench and ramp. [facility] to request [facility] PT/OT. Father to transport home. Plan: DC home alone 07/19, [facility] PT/OT and PEGGY FletcherW
[2021-07-12] MEDS: Gabapentin 100 MG Capsule PO (18:06)
[2021-07-12 19:21] VITALS: BP 128/77; PULSE 92; RESP 16; TEMP 36.9; O2SAT 97
[2021-07-12] MEDS: Ibuprofen 600 MG Tablet PO (21:03)
[2021-07-12] MEDS: traZODone 100 MG Tablet PO (21:03)
[2021-07-13] MEDS: Ibuprofen 600 MG Tablet PO ×3 (05:37→21:22)
[2021-07-13 06:40] LABS: Anion Gap 4 (5-15); BUN 17 mg/dL (7-18); BUN/Creat Ratio 21.1 RATIO (10-20); Calcium,Total 8.9 mg/dL (8.5-10.1); Chloride 108 mmol/L (98-107); Creatinine, Serum 0.81 mg/dL (0.70-1.30); EST Glomerular Filtration Rate 114 mL/min (>60); Est Glom Filt Rate - Afr Amer 138 mL/min (>60); Estimated Creatinine Clearance 141.11 ml/min; Glucose 123 mg/dL (74-106); Potassium 3.8 mmol/L (3.5-5.1); Sodium Level 137 mmol/L (136-145)
[2021-07-13 07:37] VITALS: BP 109/65; PULSE 94; RESP 18; TEMP 36.4; O2SAT 94
[2021-07-13] MEDS: Gabapentin 100 MG Capsule PO ×3 (08:07→17:14)
[2021-07-13] MEDS: APIXABAN 2.5 MG TABLET PO ×2 (08:07→21:22)
[2021-07-13] MEDS: oxyCODONE 5 MG Tablet 10 MG PO (08:08)
[2021-07-13] MEDS: Bacitracin 500 UNITS/GM PACKET TOPICAL ×2 (08:11→21:22)
--- NOTE | 2021-07-13 10:08 | PCM.PN.BLA ---
Progress Note Afebrile Vital signs stable Maintaining appropriate oxygen saturation on room air Good oral intake Chavez tells me that he slept much better last night. He also feels much more alert today and the brain fog has lifted. He is not complaining of being tired. He states his pain is adequately controlled. Denies epistaxis, bleeding from his gums, blood on the toilet paper after a bowel movement. Medication list was reviewed. He had 3 doses of oxycodone 10 mg yesterday and took 1 this morning prior to physical therapy. He has not requested the Robaxin since it was changed to as needed yesterday afternoon. He tells me the Motrin does not help much with the pain however I told him it will take a few days and I also told him that we are using it as an anti-inflammatory and this effect will take longer than pain relief. He has had no adverse reactions. Much more alert today. He answers my questions quickly and does look to be in any distress. H- RRR L - CTA abd- soft, NT, ND with nl BS's Impressions 1. S/P R tib/fib fx and crush injury and ORIF with insertion of a metal tomasz in the Tibia 2. On Eliquis 2.5 BID for DVT prophylaxis. 3. Continue therapy and no changes to the drug regimen today. 4. I completed his FMLA papers today and the workman's comp paperwork earlier in the week Visit Charges Inpatient E&M: 68050 Subs Hosp L2
[2021-07-13 19:15] VITALS: BP 124/82; PULSE 74; RESP 14; TEMP 36.6; O2SAT 99
[2021-07-13] MEDS: traZODone 100 MG Tablet PO (21:22)
[2021-07-14] MEDS: oxyCODONE 5 MG Tablet 10 MG PO ×2 (03:31→16:29)
[2021-07-14] MEDS: Ibuprofen 600 MG Tablet PO ×3 (06:35→21:38)
[2021-07-14] MEDS: APIXABAN 2.5 MG TABLET PO ×2 (07:29→21:38)
[2021-07-14] MEDS: Gabapentin 100 MG Capsule PO ×3 (07:29→16:29)
[2021-07-14] MEDS: Bacitracin 500 UNITS/GM PACKET TOPICAL ×2 (07:29→21:37)
[2021-07-14 07:32] VITALS: BP 114/56; PULSE 72; RESP 16; TEMP 36.7; O2SAT 97
[2021-07-14 21:35] VITALS: BP 100/59; PULSE 89; RESP 16; TEMP 36.9; O2SAT 98
[2021-07-14] MEDS: traZODone 100 MG Tablet PO (21:38)
[2021-07-14 22:00] VITALS: PULSE 89; RESP 16; O2SAT 98
[2021-07-15] MEDS: Ibuprofen 600 MG Tablet PO ×3 (06:02→22:08)
[2021-07-15 07:52] VITALS: BP 128/68; PULSE 104; RESP 18; TEMP 36.2; O2SAT 96
[2021-07-15] MEDS: Gabapentin 100 MG Capsule PO ×3 (08:03→17:48)
[2021-07-15] MEDS: oxyCODONE 5 MG Tablet 10 MG PO (08:03)
[2021-07-15] MEDS: Bacitracin 500 UNITS/GM PACKET TOPICAL ×2 (08:03→22:08)
[2021-07-15] MEDS: APIXABAN 2.5 MG TABLET PO ×2 (08:03→22:08)
[2021-07-15 19:01] VITALS: BP 111/77; PULSE 90; RESP 16; TEMP 36.6; O2SAT 98
[2021-07-15 21:55] VITALS: RESP 16; O2SAT 99
[2021-07-15] MEDS: Methocarbamol 500 MG Tablet 1000 MG PO (22:08)
[2021-07-15] MEDS: traZODone 100 MG Tablet PO (22:08)
[2021-07-16] MEDS: oxyCODONE 5 MG Tablet 10 MG PO ×2 (02:26→13:46)
[2021-07-16] MEDS: Ibuprofen 600 MG Tablet PO ×3 (06:12→21:31)
[2021-07-16 07:25] VITALS: BP 112/59; PULSE 78; RESP 16; TEMP 36.7; O2SAT 93
--- NOTE | 2021-07-16 08:30 | RAD_ITS ---
INDICATION: prior fracture, surgical post op EXAMINATION/TECHNIQUE: X-RAY - RIGHT XR Tibia/Fibula 2 Views 4 VIEWS COMPARISON: 06/29/2021. FINDINGS: Internal fixation of the right tibia visualized, no evidence of lucency surrounding the prosthesis. Unremarkable alignment of the distal tibial diaphysis fracture. Transverse fracture of the distal fibular diaphysis is seen with mild displacement. Degenerative bone changes seen, no abnormal density visualized in the soft tissues. RAD/Tibia & Fibula 2 Views IMPRESSION: Unremarkable alignment of the distal tibia diaphysis fracture Electronically Signed: Frantz Nguyen MD at 11:43 EDT ,
[2021-07-16] MEDS: Gabapentin 100 MG Capsule PO ×3 (10:25→17:43)
[2021-07-16] MEDS: APIXABAN 2.5 MG TABLET PO ×2 (10:25→21:31)
[2021-07-16] MEDS: Bacitracin 500 UNITS/GM PACKET TOPICAL (10:25)
--- NOTE | 2021-07-16 15:47 | PCM.PN.BLA ---
Progress Note Afebrile VSS Maintaining appropriate oxygen saturation on RA Oral intake is good Discussed with nursing - no problems that need addressed Reviewed the PT/OT notes Medication list reviewed. He is only taking the Oxycodone 2-3 times a day now and yesterday he only had 1 dose......no therapy was done on Friday. Has taken only 2 Baclofen since it was made PRN. One on the and 1 yesterday. He states he is sleeping OK and that his pain is adequately controlled. He denies any N/V/abd pain from the Motrin. He is alert and oriented X 3 today. He is cooperative and appropriate. Does not look in any distress until the randall were removed. and then he was yelling out. The incisions near the knee are healing and there is no dehiscence and no erythema or purulent DC. The longer incision over the R tib/fib has 2 areas where the incision has . There is a small amount of serous drainage and no purulent DC. There is no swelling and no erythema. There is no odor. Steri strips were applied and the incision was covered with an ABD and then wrapped with an CHANTELLE wrap. The boot was reapplied. Minimal edema of the R foot and trace ankle edema on the R. No edema of the Left leg. The incision in the left leg where the laceration was repaired is intact with no erythema, DC or swelling. The swelling in the R mid calf has resolved he has a few area of stasis dermatitis on the R distal leg......will order a moisturizer. Impressions 1. traumatic fracture of the R tib/fib with crush injury S/P ORIF with insertion of metal tomasz in the R tibia. Will continue therapy. Make MOD I tomorrow. We are awaiting the delivery of the crutches so therapy can work with him using the crutches prior to DC. Plan is for DC home on 07/19/21. Visit Charges Inpatient E&M: 01435 Subs Hosp L2
--- NOTE | 2021-07-16 16:33 | MDS.RN ---
21 randall and sutures removed, no s/s infection, Steri strips applied to 2 drenched areas. cleansed with NS, Bactroban applied, coved with DSD, Kerlix and wilmar wrap. pt tolerated well
[2021-07-16 19:25] VITALS: BP 115/70; PULSE 80; RESP 16; TEMP 36.2; O2SAT 96
[2021-07-16] MEDS: Mupirocin Ointment 22gm Tube 1 APPLIC TOPICAL (21:30)
[2021-07-16] MEDS: traZODone 100 MG Tablet PO (21:32)
[2021-07-16 22:00] VITALS: PULSE 93; RESP 17; O2SAT 97
[2021-07-17] MEDS: oxyCODONE 5 MG Tablet 10 MG PO (02:56)
[2021-07-17] MEDS: Ibuprofen 600 MG Tablet PO ×3 (05:14→20:19)
[2021-07-17 07:29] VITALS: BP 109/70; PULSE 68; RESP 16; TEMP 36.3; O2SAT 95
[2021-07-17] MEDS: Mupirocin Ointment 22gm Tube 1 APPLIC TOPICAL ×2 (08:01→20:17)
[2021-07-17] MEDS: APIXABAN 2.5 MG TABLET PO ×2 (08:02→20:19)
[2021-07-17] MEDS: Gabapentin 100 MG Capsule PO ×3 (08:02→16:22)
--- NOTE | 2021-07-17 11:33 | PN_ITS ---
Subjective Subjective Afebrile Vital signs stable Maintaining appropriate oxygen saturation on room air Good oral intake This is day #3 without a bowel movement. He has been refusing senna and MiraLAX for several days in a row. Medication list was reviewed. He took 2 oxycodone 10 mg tablets yesterday. He has not taken any baclofen since 07/15/2021. He is sleeping well at night now. Denies any N/V/epigastric pain. No CP, SOB, palpitations, lightheadedness. His does c/o RLE pain distal to the knee. He is alert and has been ambulating in the halls on crutches and does not appear to be uncomfortable. Lungs - CTA, not tachypneic, no conversational dyspnea. HRRR without ectopy. The swelling in the R leg from the knee down continues to improve. The incision is intact and all the steri strips are still in place. there is a small amount of dried serous drainage. No erythema and no increased warmth to touch. He asked how long it would be before he could take a shower and I told him it would be up to the surgeon.......since the wound had some dehiscence when the randall were removed I don't want dirty water from the rest of his body running over the wound and I do not want the steri strips removed until they fall off by themselves......the wound edges are approximated well now with the steri strips. both feet are warm with intact sensation. Impressions 1. traumatic fx of the R tib/fib with crush injury to the distal R Leg/S/P ORIF with a metal tomasz inserted into the tibia.....Continue wearing the boot and m aintaining TTWB on the RLE 2. Check a CBC with diff and a BMP in the AM 3. No adjustments to the drug regimen today 4. Will DC home with [facility] on 5. Continue Bactroban to the wound over the anterior tibia twice daily. Keep the wound covered Objective Data Objective Data Vital Signs: Vital Signs Temp Pulse Resp BP Pulse Ox 97.4 F L 68 16 109/70 95 07/17/21 07:29 07/17/21 07:29 07/17/21 07:29 07/17/21 07:29 07/17/21 07:29 Oxygen Delivery Method Room Air Weight: 200 lb 9.93 oz Body Mass Index (BMI) 26.4 Intake & Output: Intake and Output for Last 24 Hours 07/15/21 07/16/21 07/17/21 23:59 23:59 23:59 Intake Total 1520 / 1520 340 / 340 Balance 1520 / 1520 340 / 340 Lab / Micro Data Result Diagrams: 07/08/21 05:58 07/13/21 06:06 Radiography Diagnostic Testing: Radiology Impression Tibia/Fibula X-Ray 07/16/21 08:30 IMPRESSION: Unremarkable alignment of the distal tibia diaphysis fracture Electronically Signed: Frantz Nguyen MD at 11:43 EDT , Assessment & Plan Assessment/Plan (1) S/P ORIF (open reduction internal fixation) fracture: (2) Open fracture of right tibia and fibula: (3) Crushing injury of right lower leg: PLAN: 1. Oren received his crutches today and has been ambulating in the smith with his crutches at standby assist with no loss of balance. 2. BMP and CBC with differential in the a.m. 3. Continue therapy 4. Discontinue MiraLAX and senna since he is not taking them 5. Plan discharge home for .......family is building a ramp for him to be able to gain entry into his trailer. Charges/Coding Visit Charges Inpatient E&M: 25182 Subs Hosp L2
--- NOTE | 2021-07-17 16:10 | CASEMGMT ---
Social Work Continue to coordinate DC DME and therapy needs with Jocelyn Alvarenga. C9 forms have been completed and approved for the following DME: tub transfer bench, tall crutches, FWW and w/c with elevating leg rests. Family has built ramp for pt at home entry way. Since PT is requesting crutches prior to DC to practice, CM suggested for SW to order through local DME company to have them delivered prior. [employer] does not carry crutches. Contacted [facility] - they have pt's size in stock, and will hold for pt's father to knot picker cloth. Confirmed with CM that the cost of the crutches will be reimbursed to pt. Spoke with pt to advise of above. Pt appreciative and requested outpatient PT/OT. Updated CM and completed additional C9 for that request. SW to continue to follow. Meryl Bonilla, CORPORATE VP ADVERTISING & ONLINE WATER FILTERER HELPER
[2021-07-17 19:00] VITALS: BP 131/65; PULSE 87; RESP 16; TEMP 36.4; O2SAT 97
[2021-07-17] MEDS: traZODone 100 MG Tablet PO (20:19)
[2021-07-18] MEDS: oxyCODONE 5 MG Tablet 10 MG PO (04:06)
[2021-07-18 05:33] LABS: Absolute Lymphocyte Count 2.03 X10^3/uL (0.83-4.51); Absolute Neutrophil Count 8.7 X10^3/uL (2.0-7.7); Basophil# 0.08 X10^3/uL; Basophil% 0.6 % (0-1); Eosinophil# 0.46 X10^3/uL; Eosinophils% 3.7 % (0-5); Hematocrit 38.7 % (40-54); Hemoglobin 12.8 g/dL (13.0-16.5); Lymphocyte # 2.03 X10^3/ul (0.83-4.51); Lymphocyte % 16.1 % (19-41); Mean Corp Hgb Conc 33.1 g/dL (32-36); Mean Corpuscular Hgb 29.9 pg (27.0-32.0); Mean Corpuscular Volume 90.4 fL (80-94); Mean Platelet Vol. 8.4 fl (6.2-12.0); Monocyte# 1.26 X10^3/uL; NRBC Flagged by Analyzer 0 % (0-5); Neutrophil % 69.2 % (47-70); Platelet Count 615 K/mm3 (150-450); RBC Distribution Width CV 14.2 % (11.6-14.6); Red Blood Count 4.28 M/mm3 (4.6-6.2); White Blood Count 12.6 K/mm3 (4.4-11.0)
[2021-07-18 05:53] LABS: Anion Gap 5 (5-15); BUN 19 mg/dL (7-18); BUN/Creat Ratio 25.4 RATIO (10-20); Calcium,Total 8.5 mg/dL (8.5-10.1); Chloride 106 mmol/L (98-107); Creatinine, Serum 0.75 mg/dL (0.70-1.30); EST Glomerular Filtration Rate 124 mL/min (>60); Est Glom Filt Rate - Afr Amer 150 mL/min (>60); Glucose 101 mg/dL (74-106); Potassium 4.1 mmol/L (3.5-5.1); Sodium Level 138 mmol/L (136-145)
[2021-07-18] MEDS: Ibuprofen 600 MG Tablet PO ×3 (06:28→21:42)
[2021-07-18] MEDS: Mupirocin Ointment 22gm Tube 1 APPLIC TOPICAL ×2 (09:14→21:41)
[2021-07-18] MEDS: Gabapentin 100 MG Capsule PO (09:14)
[2021-07-18] MEDS: APIXABAN 2.5 MG TABLET PO ×2 (09:14→21:42)
[2021-07-18 10:00] VITALS: BP 120/64; PULSE 88; RESP 20; TEMP 36.6; O2SAT 97
--- NOTE | 2021-07-18 10:38 | PCM.PN.BLA ---
Progress Note Afebrile Vital signs stable PT/OT notes were reviewed. Medication list was reviewed. Has been taking 2 doses of Oxycodone 10 mg daily. No Baclofen since 07/15. He is currently on Motrin 600mg TID, Oxycodone and Gabapentin 100 mg TID. The brain fog has cleared since the Gabapentin dose was decreased from 300 mg BID and since the Baclofen was made TID. Oxycodone use decreased with the addition of the Motrin to the drug regimen. Sleeping well at night with Trazodone and will continue this at discharge. All lab was personally reviewed. Sodium is normal. Platelets are mildly increased and the hemoglobin is mildly decreased to 12.8. The RDW is increasing. Increased platelets could be due to iron deficiency........due to blood loss from the injury and the surgery. The WBC is 12. 6 which is down from 18.2 at admission. There are 70% neutrophils and the percentage of immature granulocytes is normal. Creatinine is stable at 0.75. No CP, SOB, palpitations. Denies N/V/epigastric pain. No lightheadedness. Alert, appears comfortable HRRR Lungs - CTA Swelling continues to decrease in the R distal leg. He has intact neurovascular to the R foot. No rashes and no breakdown. Impressions 1. traumatic fx of the R tib/fib with crush injury to the distal R Leg/S/P ORIF with a metal tomasz inserted into the tibia.....Continue wearing the boot and maintaining TTWB on the RLE 2. Mild thrombocytosis 3. Mild N/N anemia with an increased RDW. Add Ferrous sulfate 325 mg daily to his current drug regimen. 4. Hyponatremia - resolved 5. localized dehiscence of the anterior tibial incision following staple removal - stabilized with Steri Strips. 6. DC home tomorrow. Visit Charges Inpatient E&M: 01251 Subs Hosp L2
--- NOTE | 2021-07-18 11:09 | PCM.DC ---
Discharge Instructions Diet Discharge Diet: No restrictions (Maintain a good protein intake to help with wound healing. ) Activity Discharge Activity: May Not Drive, May Shower (Do NOT get the R leg from the knee down wet. You can tape a clean garbage bag around the leg at the knee to prevent getting it wet when you are in the shower. ), Use Walker and Use Crutches Ice area for (Minutes): 15 Weight Bearing Status: Toe touch weight bearing (on the right leg) Lifting Restrictions: 5-10 lbs Keep extremity elevated above heart level: Right Leg Dressing / Incision Call your doctor if your incision/area has: Continuous Slow Oozing, Sudden Increased Bleeding, Increased Pain/ Swelling, Increased Redness, Foul Smelling Discharge and Swelling at the incision site Call your doctor if you observe: Fever of 101 or Higher, Coldness, Increased Pain, Numbness or Tingling, Shortness of breath, Dizziness, Chest pain, Increased palpitations (irregular heartbeat) and Uncontrolled pain Suture Line Care: Avoid Pulling/Pushing, Avoid Pinching/Bending and - (Do NOT take the steri strips off....allow them to fall off on their own. ) Change Dressing in: 1 day Cleanse incision/area with: Soap & Water (Sponge around the area where the steri strips are. ), Do not get Incision Wet and Keep Dressing Clean & Dry Additional Dressing/Incision Instructions:: The steri strips are holding the incision together. There was a small amount of separation of portions of the incision when the randall were removed. Do not remove the steri strips......allow to fall off on their own. IF the incision starts to open up please call Dr. Esposito or Dr. Acevedo or Yoel Nails NP for instructions on what to do. You have a metal tomasz in the bone directly under the incision.......it would be very bad to get the incision infected because it could easily track down to the bone and infect the bone which is a BIG DEAL. Follow Up Care Please Follow Up With: Yoel Nails NP When: next week Test Results: Test results from this visit will be discussed in further detail at your follow-up appointment, if applicable. Pending Tests Upon Discharge: none Discharge Plan Admission Admit Date/Time: 07/06/21 16:55 Primary Reason for Your Visit: Debility due to traumatic fx of the R tib/fib and crush injury of the leg. Attending Provider: Bronwyn Chakraborty Primary Care Provider: Care Physician,No Primary Instructions Patient Instructions: Health Effects of Smoking, Caring for Your Incision Additional Instructions / Restrictions: 1. You were very jorje not to have lost your leg. The bone is going to take a while to heal and after it does, you will need more therapy to work on full weight bearing/ambulation on the injured R leg. Be patient and take excellent care of the incision so it does not get infected. Change the dressing every day and look for any increased redness, increased swelling, bleeding, increased drainage or foul smelling discharge from the wound. If you notice any of things call Dr. Esposito or Yoel Nails NP or Dr. Acevedo and ask for instructions. Also get a thermometer and take your temp daily. If your temp increases to > 100.4 F call the doctor. 2. I am only allowed by law to give you a narcotic prescription for 7 days. You have an appt with Yoel Nails NP (he works with Dr. Acevedo who is your new PCP) and he will renew a prescription and also examine the incision. 3. The XRAY you recently had prior to leaving rehab showed good alignment of the fracture and no evidence of infection in the bone. 4. You have an appt to follow up with Dr. Robert Esposito on 08/07/21. 5. You have not smoked since June 29......this is fantastic! Smoking will decrease the blood flow to the wound and delay healing. If you are tempted to smoke again, there is a smoking cessation program here at the hospital that can help you. Call [phone] and ask to be connected to the smoking cessation coordinator. 6. A good thing to apply over the incision to protect and cushion it, would be a women's sanitary napkin. It is a lot cheaper than dressing supplies. Always wash your hands prior to changing the dressing. Continue to apply the Bactroban cream twice a day until the wound is completely healed. Always use the CHANTELLE wrap around the distal R leg to help control swelling and keep the R leg elevated any time you are sitting. This leg may tend to swell for the rest of your life due to trauma to the veins and lymphatic channels in the R Leg. You may need to wear a compression stocking going forward to help with swelling. When the leg swells it will ache. The skin will dry and crack and may let bacteria in. Use a moisturizer before you go to bed at night from the R knee to the toes. 7. When I completed your FMLA paperwork I gave you 3 months off work. If you need more time, Dr. Esposito would be the one to talk with workman's comp and your employer. 8. You will be on a medication called Eliquis until July 29 and then you can discontinue this medication. The medication helps to prevent blood clots after the surgery, marilyn since you are not able to bear wt on the R leg. Take it every 12H. 9. Good [place] Chavez. If you have questions after you leave rehab please do not hesitate to call me. Office: [phone] 4. Discharge Orders/Prescriptions Prescriptions: New ferrous sulfate [FeroSul] 325 mg (65 mg iron) Tablet 325 mg PO DAILY Qty: 30 RF: 0 gabapentin 100 mg Capsule 100 mg PO TIDCM PRN (Reason: radicular pain in the R leg) Qty: 30 RF: 0 ibuprofen 600 mg Tablet 600 mg PO TID Qty: 60 RF: 0 mupirocin 2 % Ointment 1 applic topical BID Qty: 22 RF: 0 trazodone 100 mg Tablet 100 mg PO QHS Qty: 30 RF: 0 oxycodone-acetaminophen [Percocet] 10-325 mg tablet 1 tab PO Q6H PRN (Reason: pain) 7 Days Qty: 28 RF: 0 Continued Eliquis 2.5 mg Tablet 2.5 mg PO BID Qty: 22 RF: 0 Changed methocarbamol 500 mg Tablet 1,000 mg PO TID PRN PRN (Reason: muscle spasms) Qty: 21 RF: 0 Discontinued bacitracin 500 unit/gram Ointment 1 applic TOPICAL BID RF: 0 acetaminophen 500 mg Tablet 1,000 mg PO Q8H PRN (Reason: Pain) RF: 0 sennosides [senna] 8.6 mg Tablet 2 mg PO BID RF: 0 polyethylene glycol 3350 [Miralax] 17 gram Powder In Packet 17 g PO BID RF: 0 ondansetron HCl [Zofran] 4 mg Tablet 4 mg PO Q8H PRN (Reason: Nausea And Vomiting) RF: 0 docusate sodium 100 mg Capsule 100 mg PO BID RF: 0 gabapentin 300 mg Capsule 300 mg PO TID RF: 0 nicotine 7 mg/24 hr Patch 24 Hour 1 patch TRANSDERMAL Q24H RF: 0 oxycodone 5 mg Tablet 5 - 10 mg PO Q6H PRN (Reason: Pain) RF: 0 Referrals / Follow Up: Crissy Acevedo MD [STAFF PHYSICIAN] - 07/24/21 1:00 pm (Will be seeing Yoel Nails NP: please arrive 15-30 min early for paperwork.) Robert Esposito MD [NON-STAFF] - 08/07/21 9:45 am (Surgeon ) Yoel Nails NP, SALES REPRESENTATIVE [employer] [Nurse Practitioner] - Disposition Disposition (needs filled in before D/C Order can be placed): Home, Self Care
--- NOTE | 2021-07-18 11:42 | CASEMGMT ---
Addendum entered by Meryl Bonilla 07/19/21 13:24: [facility] scheduled appt for 07/20 at 8:30 am. Contacted pt to provide info. Pt confirmed all DME will be delivered to his home tomorrow. Pt dc'd home with crutches and ramp had been built. Addendum entered by Meryl Bonilla 07/18/21 12:47: CM requested physician order for outpatient therapy and that will be sent to get approval as well. Spoke with pt to get preference on outpatient facility. Pt requested [facility]. Order sent to CM. Then once C9 and order is approved, that can be sent to [facility] to proceed with referral and scheduling. Addendum entered by Meryl Bonilla 07/18/21 11:43: [facility] returned call and stated the cost is higher than they are allotted and [facility] [place] for [place]. Provided [facility] contact information. [facility] appreciative. Followed up with Jocelyn CM on approval for outpatient therapy and how to properly make referral to facility. SW to continue to follow. Original Note: Social Work Received call from [facility] the DME provider for pt, requesting local DME company to provide FWW delivery at time of pt DC. Provided contact information. PEGGY GonzalesW
--- NOTE | 2021-07-18 12:58 | DS.PCM_ITS ---
Providers Date of Admission: 07/06/21 Primary Care Physician: Dr. Acevedo/Yoel Nails NP Reason For Visit: MULTIPLE TRAUMA Diagnosis Discharge Diagnosis (1) Traumatic injury of right lower extremity: Status: Acute Code(s): S89.91XA - Unspecified injury of right lower leg, initial encounter (2) Open fracture of right tibia and fibula: Status: Acute Code(s): S82.201B - Unspecified fracture of shaft of right tibia, initial encounter for open fracture type I or II; S82.401B - Unspecified fracture of shaft of right fibula, initial encounter for open fracture type I or II (3) Crushing injury of right lower leg: Status: Acute Code(s): S87.81XA - Crushing injury of right lower leg, initial encounter (4) S/P ORIF (open reduction internal fixation) fracture: Status: Acute Code(s): Z98.890 - Other specified postprocedural states; Z87.81 - Personal history of (healed) traumatic fracture (5) Laceration of left leg: Status: Acute Code(s): S81.812A - Laceration without foreign body, left lower leg, initial encounter (6) Acute blood loss anemia: Status: Acute Code(s): D62 - Acute posthemorrhagic anemia (7) Thrombocytosis: Status: Acute Code(s): D75.839 - Thrombocytosis, unspecified (8) Wound dehiscence, traumatic injury repair: Status: Acute Code(s): T81.33XA - Disruption of traumatic injury wound repair, initial encounter (9) Tobacco dependence: Status: Acute Code(s): F17.200 - Nicotine dependence, unspecified, uncomplicated Plan: 1. Will follow up with Yoel Nails NP on 07/24/21 2. Follow up with Dr. Robert Carrillo on 08/07/21 3. OP therapy post discharge 4. DME provided - FWW, crutches, WC with elevating leg rests, tub transfer bench 5. Ramp being built by the family so he can gain entry to his trailer 6. Smoking cessation counselling repeated again today. Medications at Discharge Home Medications Eliquis 2.5 mg PO BID #22 tab 07/18/21 ferrous sulfate [FeroSul] 325 mg PO DAILY #30 tab 04/20/22 gabapentin 100 mg PO TIDCM PRN #30 cap 07/18/21 ibuprofen 600 mg PO TID #60 tab 07/18/21 methocarbamol 1,000 mg PO TID PRN PRN #21 tab 07/18/21 mupirocin 1 applic TOPICAL BID #22 g 07/18/21 oxycodone-acetaminophen [Percocet] 1 tab PO Q6H PRN 7 Days #28 tab 07/18/21 trazodone 100 mg PO QHS #30 tab 07/18/21 Hospital Course Operations - (ORIF traumatic R tib/fib fracture with crush injury on 06/29/21 with insertion of a metal tomasz into the tibia on 06/29/[address] Robert Carrillo ) Procedures None Summary of Care Provided Minutes Spent on Discharge: 35 Hospital Course: JUAN MENA, is a 35 YO M with a PMH of tobacco dependence, who presented to the ED at [facility] on 06/29/[address] of work. A 1,000 lb piece of machinery fell off an elevated surface onto the patient's legs. Coworkers were able to release him in less than 5 minutes and he was brought to the ED. He had injuries to both legs and the left flank. EMS had splinted his right leg and he had been given fentanyl for pain control. On physical examination there was an open deformity of the right distal lower leg. There was a 6 cm full-thickness linear laceration into the subcutaneous fat of the lateral left lower leg and abrasion/contusion to the left lateral flank. XRAYS showed a fracture of the R tib/fib. He was transferred to the trauma service at [facility] where he had an I&D of the open wound and IM tomasz fixation of the mid-distal tibial fracture by Dr. Robert Carrillo. Post operatively he was seen by PT/OT and acute inpt rehab was recommended. He was transferred to the acute inpt rehab unit at [facility] on 07/06/21 for 3 hours of therapy daily to restore function/independence at or near his level prior to the accident. At presentation to the rehab floor Chavez was always tired and c/o brain fog. He was taking Gabapentin 300 TID, Robaxin 1,000 mg Q 6 H and Oxycodone every 6 hours. He complained that his pain was not adequately relieved. Gabapentin was changed to 100 mg TID and the Robaxin was made PRN every 8 hours. Oxycodone was increased to 10 mg Q 4 hours as needed. He was started on Motrin 600 mg Q8H. He became much more alert and was better able to do therapy. He has only had 2 doses of Robaxin since it was changed to PRN and that was on 07/12 and 07/15. The Gabapentin was made PRN 1 day prior to DC and he has not requested it since I changed to PRN. He tells me at discharge that his pain is adequately controlled. HGB dropped a little while in rehab and the RDW increased and platelets also mildly increased. He was started on an iron sup plement. Hemoglobin at discharge is 12.8 and the platelets are up to 615,000. While he was in rehab the randall were removed from the LLE laceration and the laceration is intact with no dehiscence, no erythema and no discharge. On 07/16/21 the randall were removed from the RLE. There are 2 small areas of dehiscence about mid tibia. Steri strips were applied and at the time of discharge the wound is intact and the steri strips remain in place. Chavez was instructed not to remove the steri strips. they will eventually fall off. There is a small amount of dried serous drainage present. There is no erythema, no purulent DC and no odor. The swelling in the R leg distal to the knee has improved significantly since admission. He will continue Bactroban to the RLE incision BID at AL. He will also moisturize his legs at least once daily to prevent stasis dermatitis and cracking of the skin which could lead to an infection. Prior to DC Kelly was ambulating with crutches independently while maintaining NWB on the RLE with no LOB. He has ambulated up to 253 ft. he is independent with eating, grooming, upper and lower body dressing, toilet transfer and toileting. He is supervision/set up for tub/shower transfer and bathing. Chavez was discharged on 07/19/21. His family has constructed a ramp so that he can gain access to his trailer. He will follow up at [facility] for additional therapy. DME included a WW, crutches, WC with elevating leg rests and a shower/tub chair. He chose Dr. Acevedo as his PCP and he has an appt with Yoel Nails NP in 1 week to examine the wound and renew pain medications. He will follow up with the surgeon, Dr. Robert Carrillo, on 08/07/21. Physical Exam Const alert, oriented x3 and no apparent distress General Appearance: cooperative, well kempt and well developed Eyes conjunctivae normal and no scleral icterus Resp normal respiratory effort, normal air movement and clear to auscultation bilaterally Effort and Inspection: able to speak in complete sentences Cardio regular rate, regular rhythm, S1 normal heart sound, S2 normal heart sound, no murmurs, no rub and no gallops Cardio Narrative: no ectopy GI normal to inspection, nondistended, normoactive bowel sounds, soft to palpation and non-tender Extremity Extremity Narrative: The incision on the R distal LE is intact. There is no erythema and no purulent DC. Resolving ecchymosis is present. The steri strips applied to the wound on 07/16/21 is still intact. There is a very small amount of dried serosanguineous discharge where the small area of dehiscence occurred with staple removal. He has swelling of the R ankle but, his has been sitting all morning with his legs dependent. The swelling has decreased significantly since admission to the rehab unit. The DP pulse is 3/3 and he has intact sensation to the R leg. Skin General Skin Exam: no breakdown Rashes: no rashes Wound Narrative: see the description in the extremity section Neuro oriented x3, CN's II-XII intact bilaterally, moves all extremities, no focal motor deficits and no sensory deficits noted Psych thought process normal, cooperative, affect normal and speech normal Appearance: grossly normal and appropriate Attitude: calm Activity / Motor Behavior: appropriate eye contact Weight / BMI Weight Weight: 203 lb 7.787 oz Body Mass Index (BMI) 26.4 ABG / Lab / Microbiology Data Result Diagrams: 07/18/21 05:21 07/18/21 05:21 Laboratory: Laboratory Results - last 24 hr 07/18/21 05:21: WBC 12.6 H, RBC 4.28 L, Hgb 12.8 L, Hct 38.7 L, MCV 90.4, MCH 29.9, MCHC 33.1, RDW Std Deviation 47.0 H, RDW Coeff of Magalie 14.2, Plt Count 615 H, MPV 8.4, Immature Gran % (Auto) 0.400, Neut % (Auto) 69.2, Lymph % (Auto) 16.1 L, [place] % (Auto) 10.0, Eos % (Auto) 3.7, Baso % (Auto) 0.6, Absolute Neuts (auto) 8.7 H, Absolute Lymphs (auto) 2.03, Nucleated RBC % 0 07/18/21 05:21: Sodium 138, Potassium 4.1, Chloride 106, Carbon Dioxide 27.0, Anion Gap 5, BUN 19 H, Creatinine 0.75, Estim Creat Clear Calc 152.40, Est GFR (MDRD) Af Amer 150, Est GFR (MDRD) Non-Af 124, BUN/Creatinine Ratio 25.4 H, Glucose 101, Calcium 8.5 D/C Instructions Discharge Diet: No restrictions (Maintain a good protein intake to help with wound healing. ) Ice area for (Minutes): 15 Weight Bearing Status: Toe touch weight bearing (on the right leg) Keep extremity elevated above heart level: Right Leg Call your doctor if your incision/area has: Continuous Slow Oozing, Sudden Increased Bleeding, Increased Pain/ Swelling, Increased Redness, Foul Smelling Discharge and Swelling at the incision site Call your doctor if you observe: Fever of 101 or Higher, Coldness, Increased Pain, Numbness or Tingling, Shortness of breath, Dizziness, Chest pain, Increased palpitations (irregular heartbeat) and Uncontrolled pain Suture Line Care: Avoid Pulling/Pushing, Avoid Pinching/Bending and - (Do NOT take the steri strips off....allow them to fall off on their own. ) Cleanse incision/area with: Soap & Water (Sponge around the area where the steri strips are. ), Do not get Incision Wet and Keep Dressing Clean & Dry Additional Dressing/Incision Instructions: The steri strips are holding the incision together. There was a small amount of separation of portions of the incision when the randall were removed. Do not remove the steri strips......allow to fall off on their own. IF the incision starts to open up please call Dr. Carrillo or Dr. Acevedo or Yoel Nails NP for instructions on what to do. You have a metal tomasz in the bone directly under the incision.......it would be very bad to get the incision infected because it could easily track down to the bone and infect the bone which is a BIG DEAL. Pending Tests Upon Discharge: hemoccult stool Please Follow Up With: Yoel Nails NP When: next week Meaningful Use Info Meaningful Use Diagnoses (Choose all that apply): None applicable Discharge Plan Admission Admit Date/Time: 07/06/21 16:55 Primary Reason for Your Visit: Debility due to traumatic fx of the R tib/fib and crush injury of the leg. Attending Provider: Bronwyn Chakraborty Primary Care Provider: Care Physician,No Primary Instructions Patient Instructions: Health Effects of Smoking, Caring for Your Incision Additional Instructions / Restrictions: 1. You were very jorje not to have lost your leg. The bone is going to take a while to heal and after it does, you will need more therapy to work on full weight bearing/ambulation on the injured R leg. Be patient and take excellent care of the incision so it does not get infected. Change the dressing every day and look for any increased redness, increased swelling, bleeding, increased drainage or foul smelling discharge from the wound. If you notice any of things call Dr. Carrillo or Yoel Nails NP or Dr. Acevedo and ask for instructions. Also get a thermometer and take your temp daily. If your temp increases to > 100.4 F call the doctor. 2. I am only allowed by law to give you a narcotic prescription for 7 days. You have an appt with Yoel Nails NP (he works with Dr. Acevedo who is your new PCP) and he will renew a prescription and also examine the incision. 3. The XRAY you recently had prior to leaving rehab showed good alignment of the fracture and no evidence of infection in the bone. 4. You have an appt to follow up with Dr. Robert Carrillo on 08/07/21. 5. You have not smoked since June 29......this is fantastic! Smoking will decrease the blood flow to the wound and delay healing. If you are tempted to smoke again, there is a smoking cessation program here at the hospital that can help you. Call [phone] and ask to be connected to the smoking cessation coordinator. 6. A good thing to apply over the incision to protect and cushion it, would be a women's sanitary napkin. It is a lot cheaper than dressing supplies. Always wash your hands prior to changing the dressing. Continue to apply the Bactroban cream twice a day until the wound is completely healed. Always use the CHANTELLE wrap around the distal R leg to help control swelling and keep the R leg elevated any time you are sitting. This leg may tend to swell for the rest of your life due to trauma to the veins and lymphatic channels in the R Leg. You may need to wear a compression stocking going forward to help with swelling. When the leg swells it will ache. The skin will dry and crack and may let bacteria in. Use a moisturizer before you go to bed at night from the R knee to the toes. 7. When I completed your FMLA paperwork I gave you 3 months off work. If you need more time, Dr. Carrillo would be the one to talk with workman's comp and your employer. 8. You will be on a medication called Eliquis until July 29 and then you can discontinue this medication. The medication helps to prevent blood clots after the surgery, marilyn since you are not able to bear wt on the R leg. Take it every 12H. 9. Good [place] Chavez. If you have questions after you leave rehab please do not hesitate to call me. Office: [phone] 4. Discharge Orders/Prescriptions Prescriptions: New ferrous sulfate [FeroSul] 325 mg (65 mg iron) Tablet 325 mg PO DAILY Qty: 30 RF: 0 gabapentin 100 mg Capsule 100 mg PO TIDCM PRN (Reason: radicular pain in the R leg) Qty: 30 RF: 0 ibuprofen 600 mg Tablet 600 mg PO TID Qty: 60 RF: 0 mupirocin 2 % Ointment 1 applic topical BID Qty: 22 RF: 0 trazodone 100 mg Tablet 100 mg PO QHS Qty: 30 RF: 0 oxycodone-acetaminophen [Percocet] 10-325 mg tablet 1 tab PO Q6H PRN (Reason: pain) 7 Days Qty: 28 RF: 0 Continued Eliquis 2.5 mg Tablet 2.5 mg PO BID Qty: 22 RF: 0 Changed methocarbamol 500 mg Tablet 1,000 mg PO TID PRN PRN (Reason: muscle spasms) Qty: 21 RF: 0 Discontinued bacitracin 500 unit/gram Ointment 1 applic TOPICAL BID RF: 0 acetaminophen 500 mg Tablet 1,000 mg PO Q8H PRN (Reason: Pain) RF: 0 sennosides [senna] 8.6 mg Tablet 2 mg PO BID RF: 0 polyethylene glycol 3350 [Miralax] 17 gram Powder In Packet 17 g PO BID RF: 0 ondansetron HCl [Zofran] 4 mg Tablet 4 mg PO Q8H PRN (Reason: Nausea And Vomiting) RF: 0 docusate sodium 100 mg Capsule 100 mg PO BID RF: 0 gabapentin 300 mg Capsule 300 mg PO TID RF: 0 nicotine 7 mg/24 hr Patch 24 Hour 1 patch TRANSDERMAL Q24H RF: 0 oxycodone 5 mg Tablet 5 - 10 mg PO Q6H PRN (Reason: Pain) RF: 0 Referrals / Follow Up: Crissy Acevedo MD [STAFF PHYSICIAN] - 07/24/21 1:00 pm (Will be seeing Yoel Nails NP: please arrive 15-30 min early for paperwork.) Robert Carrillo MD [NON-STAFF] - 08/07/21 9:45 am (Surgeon ) Disposition Disposition (needs filled in before D/C Order can be placed): Home, Self Care Charges/Coding Visit Charges Inpatient E&M: 28983 Disch Hosp
[2021-07-18] MEDS: Ferrous Sulfate 325 MG Tablet PO (13:13)
[2021-07-18 19:00] VITALS: BP 104/63; PULSE 81; RESP 12; TEMP 36.5; O2SAT 97
[2021-07-18] MEDS: traZODone 100 MG Tablet PO (21:42)
[2021-07-18] MEDS: Senna/Docusate Sodium 1 Tablet 2 TABLET PO (21:43)
[2021-07-19] MEDS: Ibuprofen 600 MG Tablet PO (06:41)
[2021-07-19 07:54] VITALS: BP 111/63; PULSE 89; RESP 18; TEMP 36.6; O2SAT 94
[2021-07-19] MEDS: Mupirocin Ointment 22gm Tube 1 APPLIC TOPICAL (08:34)
[2021-07-19] MEDS: APIXABAN 2.5 MG TABLET PO (08:35)
[2021-07-19] MEDS: Senna/Docusate Sodium 1 Tablet 2 TABLET PO (08:36)
--- NOTE | 2021-07-19 09:01 | NURSING ---
Dressing change done to right lower leg. Steri Stips and incision intact. Small amount of yellow drainage noted around the ankle on dressing. Eucerin and Bactroban applied as directed. patient tolerated dressing change overall pretty well. Little complaint of pain in calf area- states When putting pressure there, it feels like my leg is going to re-fall apart.
[2021-07-19 13:59] VITALS: BP 111/63; PULSE 89; RESP 18; TEMP 36.6; O2SAT 94
--- NOTE | 2021-07-19 13:59 | NURSING ---
discharged home with family. discharge instruction, medications and appointments reviewed with pt, denies questions or concerns
== END 2021-07-19 14:01 | disposition home or self-care (01) | DRG 560 ==
PROVIDERS: Admitting Provider Internal Medicine; Visit Provider Internal Medicine
DX: S82.201E Unspecified fracture of shaft of right tibia, subsequent encounter for open fracture type I or II with routine healing (principal); D62 Acute posthemorrhagic anemia; T81.30XA Disruption of wound, unspecified, initial encounter; F17.210 Nicotine dependence, cigarettes, uncomplicated; W31.9XXD Contact with unspecified machinery, subsequent encounter; S82.401E Unspecified fracture of shaft of right fibula, subsequent encounter for open fracture type I or II with routine healing; Z79.899 Other long term (current) drug therapy; Z79.01 Long term (current) use of anticoagulants; S81.812D Laceration without foreign body, left lower leg, subsequent encounter; S87.81XD Crushing injury of right lower leg, subsequent encounter
CPT/HCPCS: 36415; 73590; 80048; 80053; 83735; 84100; 85025; 97110; 97116; 97124; 97162; 97165; 97530; 97535; 97542; 97802; 99251; A4216; G0463

== ENCOUNTER → 2021-09-20 | Outpatient (CLI) | payer OTHER, SELFPAY ==
[2021-09-20 16:56] LABS: Absolute Lymphocyte Count 2.38 X10^3/uL (0.83-4.51); Absolute Neutrophil Count 5.7 X10^3/uL (2.0-7.7); Basophil# 0.07 X10^3/uL; Basophil% 0.7 % (0-1); Eosinophils% 3.2 % (0-5); Hematocrit 46.7 % (40-54); Hemoglobin 15.5 g/dL (13.0-16.5); Lymphocyte # 2.38 X10^3/ul (0.83-4.51); Lymphocyte % 25.2 % (19-41); Mean Corp Hgb Conc 33.2 g/dL (32-36); Mean Corpuscular Hgb 30.1 pg (27.0-32.0); Mean Corpuscular Volume 90.7 fL (80-94); Mean Platelet Vol. 9.9 fl (6.2-12.0); Monocyte# 0.97 X10^3/uL; Monocyte% 10.3 % (0-10); NRBC Flagged by Analyzer 0 % (0-5); Neutrophil # 5.69 X10^3/uL (2.7-7.7); Neutrophil % 60.2 % (47-70); Platelet Count 333 K/mm3 (150-450); RBC Distribution Width CV 14.3 % (11.6-14.6); RBC Distribution Width SD 48.4 fl (35.1-43.9); Red Blood Count 5.15 M/mm3 (4.6-6.2); White Blood Count 9.5 K/mm3 (4.4-11.0)
[2021-09-20 17:16] LABS: AST(SGOT) 15 U/L (15-37); Alanine Aminotransfer ALT/SGPT 39 U/L (16-61); Albumin, Serum 3.7 g/dL (3.2-5.0); Alkaline Phosphatase 89 U/L (45-117); Anion Gap 4 (5-15); BUN 10 mg/dL (7-18); BUN/Creat Ratio 10.5 RATIO (10-20); Chloride 110 mmol/L (98-107); Creatinine, Serum 0.95 mg/dL (0.70-1.30); EST Glomerular Filtration Rate 94 mL/min (>60); Est Glom Filt Rate - Afr Amer 114 mL/min (>60); Globulin 3.7 g/dL (2.2-4.2); Glucose 103 mg/dL (74-106); Potassium 3.4 mmol/L (3.5-5.1); Protein, Total 7.4 g/dL (6.4-8.2); Sodium Level 140 mmol/L (136-145)
== END | disposition home or self-care (01) ==
LOC: BIMLAB 15:15
PROVIDERS: PCP Internal Medicine; Referring Provider Internal Medicine; Visit Provider Internal Medicine
DX: D62 Acute posthemorrhagic anemia (principal); R74.8 Abnormal levels of other serum enzymes
CPT/HCPCS: 36415; 80053; 85025

== ENCOUNTER 2021-11-02 07:00 | Outpatient (RCR) | payer OTHER, SELFPAY ==
--- NOTE | 2021-07-20 12:56 | HP.PTEVAL_ITS ---
Patient's Visit Information JUAN MENA is a 35 year old M referred to Physical Therapy by Dr. Bronwyn Chakraborty DO with a diagnosis of TRAUATIC INJURY OF RLE ,ORIF ,FRACTURE RIGHT TIBIA AND FIBULA. Date of Evaluation: 07/20/21 Physical Therapist: Tre Cortes, PT, Cert MDT, OCS - Visit Plan Frequency: 2x /Week Duration: 5WEEKS Plan: S/P IM CASIE TIBIA/FIBULA 06/29/21 WITH NWB RLE WITH CAM BOOT. RTD SURGEON JT 08/07/21. 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 Patient ambulance ER EMT [facility] after controlling bleeding, Patient had compound fracture with large laceration. Then transferred to [facility] ,reset bone then underwent s/p IM casie fixation of the mid -distal tibial done by Dr Esposito . Patient was transferred acute Rehab On 07/06/21 ,then d/c from hospital to home 07/19/21. Patient is NWB RLE with CAM boot and crutches. MEDS : IBUPROFRIN, TRAZODONE, OXYCODINE. Patient plans to RTD 08/07/21. Patient has edema and some tingling. Patient lives in [address] home with ramp . Patient will get w/c ,bedside commode , walker, shower chair. Patient has difficulty with ADL'S assist with cleaning. Patient goals to return to prior level of function. SOCIAL: single. VOCATION: [employer] - Pain Right Lower Extremity Pain Intensity (Out of 10): 3 Right Ankle Pain Intensity (Out of 10): 3 Pain Intensity Range: 10 - Objective POSTURE: forward posture. NEURO: denies paresthesia/tingling. GAIT: ambulated with NWB RLE with CAM boot with crutches. SKIN : bandage distal/tibia with drainage ,incision well approximate knee. EDEMA: trimalleor joint 66.2 CM, MET HEADS 26.CM. AROM ANKLE: dorsiflexion 20 from 0 ,plantarflexion 60 degrees , eversion 0 degrees, inversion 10 degrees. G-SOLEUS FLEXABILITY: severe tight. PROPRIOCEPTION: poor. AROM KNEE: 4- 75 supine knee flexion. MMT ( peak force ) : dorsiflexion 8.5,plantarflexion 4,2,pernoneus 1.3,posteriortibials 1.2. quads 8.6,hamstring 6.7 ,hip flexion 4.5 - Balance/Special Test Scores Lower Extremity Functional Score: 13 - Goals Goal 1:: Patient to be I with HEP Goal Time Frame: 8-12 Weeks Goal 2:: Patient to ambulate with LRD with improve gait pattern Goal Time Frame: 8-12 Weeks Goal 3:: Patient to increase AROM by 10 degrees or > and knee ROM 0-110 degrees to improve stairs Goal Time Frame: 8-12 Weeks Goal 4:: Patient to improve strength quads/hams by 20-30 peak force and ankle stabilizers by 20-30 peak force to improve gait Goal Time Frame: 8-12 Weeks Goal 5:: Patient to demonstrate 70 % improvement with function with less pain to RTW. Goal Time Frame: 8-12 Weeks Goal 6:: Patient to improve LFES score by 15-20 points to improve function and gait Goal Time Frame: 8-12 Weeks - Rehabilitation Potential Physical Therapy Diagnosis: Patient had crushing right leg compound fracture tibia/fibula thus under IM casie placement with poor ROM knee /ankle pain ,decrease gait, balance /proprioception ,decrease strength ankle/knee and function with NWB thus benefit from skilled . Rehabilitation Potential: Good - Anticipated Interventions Patient/Client Instruction: Educate patient on: Condition, Plan of Care For the Purpose of:: To decrease pain, To increase ROM, To improve muscle performance and motor function, To improve ability to perform ADL's, To increase tolerance to activity/condition/position, To improve performance and independence with ADL's, To improve ability of physical actions for home/community/work/leisure, To improve gait and locomotor functions, To improve health of tissue, To decrease soft tissue restriction, To increase flexibility/ROM, To improve endurance, To improve balance, To improve safety with gait, To assume or resume ADL's, To improve health and function, To improve tolerance to ADL's Therapeutic Exercise to Include: Strength training, Endurance training, Balance training, Coordination, Postural training, Flexibilty training, Passive ROM, Active ROM Comment: QUADS/HAMS/HIP ,ANKLE STABILIZERS PROGRESS TO WB PER MD For the Purpose of:: To decrease pain, To increase ROM, To improve muscle performance and motor function, To improve ability to perform ADL's, To improve ability of physical actions for home/community/work/leisure, To improve health of tissue, To decrease soft tissue restriction, To increase flexibility/ROM, To improve endurance, To improve safety with gait, To reduce risk of recurrence, To improve health and function, To foster healthy habits, To improve tolerance to ADL's TENS: Yes IF ES: Yes Cryotherapy (ice pack, ice massage): Yes Thermo therapy (hot pack): Yes Vasopneumatic device: Yes For the Purpose of:: To decrease pain, To increase ROM, To improve nutrient delivery to tissue, To increase oxygenation perfusion, To improve health of tissue, To decrease soft tissue restriction, To increase flexibility/ROM Thank you for the opportunity to evaluate your patient. For Medicare and Medicare HMO plans, please review the plan of care and approve it. It will need to be FAXED BACK to us at [phone] for Medicare purposes. For Medicare only, by signing this I certify the plan of care. Please let me know if there are questions or concerns regarding this plan of care. Physician Signature: Date:
--- NOTE | 2022-01-02 10:46 | HP.PT.NRP ---
JUAN MENA was seen in my office for initial evaluation on 07/20/21. The following Plan of Care was established for this patient: Initial Frequency: 2x /Week Initial Duration: 5WEEKS Patient/Client Instruction: Educate patient on: Condition, Plan of Care For the Purpose of:: To decrease pain, To increase ROM, To improve muscle performance and motor function, To improve ability to perform ADL's, To increase tolerance to activity/condition/position, To improve performance and independence with ADL's, To improve ability of physical actions for home/community/work/leisure, To improve gait and locomotor functions, To improve health of tissue, To decrease soft tissue restriction, To increase flexibility/ROM, To improve endurance, To improve balance, To improve safety with gait, To assume or resume ADL's, To improve health and function, To improve tolerance to ADL's Therapeutic Exercise to Include: Strength training, Endurance training, Balance training, Coordination, Postural training, Flexibilty training, Passive ROM, Active ROM For the Purpose of:: To decrease pain, To increase ROM, To improve muscle performance and motor function, To improve ability to perform ADL's, To improve ability of physical actions for home/community/work/leisure, To improve health of tissue, To decrease soft tissue restriction, To increase flexibility/ROM, To improve endurance, To improve safety with gait, To reduce risk of recurrence, To improve health and function, To foster healthy habits, To improve tolerance to ADL's TENS: Yes IF ES: Yes Cryotherapy (ice pack, ice massage): Yes Thermo therapy (hot pack): Yes Vasopneumatic device: Yes For the Purpose of:: To decrease pain, To increase ROM, To improve nutrient delivery to tissue, To increase oxygenation perfusion, To improve health of tissue, To decrease soft tissue restriction, To increase flexibility/ROM This patient was last seen in our office . Pertinent comments regarding their Physical therapy will appear below: Patient was seen for PT 26 visits for progression WB ,gait ,rom .strengthening for right traumatic fracture tibia/fibula s/p ORIF and tomasz placement. Patient RTW but no further C9 was authorized At this point I will be discontinuing this patient from physical therapy. I would be happy to see this patient again in the future if found appropriate by the physician. Thank you! Tre Cortes, PT, Cert MDT, OCS Balance/Gait/Functional tests - Balance/Special Test Scores Lower Extremity Functional Score: 43
== END 2021-11-02 19:00 | disposition home or self-care (01) ==
LOC: PT 07:00
PROVIDERS: Referring Provider Internal Medicine; Visit Provider Internal Medicine
DX: S82.401D Unspecified fracture of shaft of right fibula, subsequent encounter for closed fracture with routine healing (principal); S82.201D Unspecified fracture of shaft of right tibia, subsequent encounter for closed fracture with routine healing
CPT/HCPCS: 97014; 97016; 97110; 97140; 97162; G0283